=== PATIENT | male | born 1990 ===

== ENCOUNTER 2025-01-25 21:57 | Emergency (ER) | payer MEDICAID, SELFPAY ==
[2025-01-25 22:15] VITALS: BP 151/101; PULSE 92; RESP 18; TEMP 36.1; O2SAT 98
[2025-01-25 22:35] VITALS: BP 140/99
[2025-01-25 22:36] VITALS: PULSE 78; O2SAT 97
[2025-01-25 22:45] VITALS: PULSE 67; O2SAT 96
[2025-01-25 23:00] VITALS: PULSE 81; O2SAT 94
[2025-01-25 23:02] VITALS: BP 153/94; PULSE 69; O2SAT 96
[2025-01-25 23:54] LABS: Amphetamine Screen Urine POSITIVE (Negative); Benzodiazepines Screen Urine POSITIVE (Negative); Cannabinoid Screen Urine Negative (Negative); Cocaine Screen Urine Negative (Negative); Methamphetamines Screen Urine Negative (Negative); Opiate Screen Urine Negative (Negative); Phencyclidine Screen Urine Negative (Negative); Tricyclic Antidepressant Urine Negative (Negative)
[2025-01-25 23:55] LABS: Barbiturate Screen Urine Negative (Negative); Methadone Screen Urine Negative (Negative); Oxycodone Screen Urine Negative (Negative)
--- NOTE | 2025-01-25 23:59 | ED.NURSE ---
pt given sandwich and juice.
[2025-01-26 00:02] LABS: Basophils Absolute Auto 0.03 K/uL (0.00-0.30); Basophils Percent Auto 0.4 % (0.0-3.0); Eosinophils Percent Auto 1.2 % (0.0-7.0); Hematocrit 41.4 % (37.0-53.0); Hemoglobin* 14.6 gm/dL (13.5-17.5); Immature Granulocytes Abs Auto 0.04 K/uL (0.00-0.30); Immature Granulocytes Pct Auto 0.5 %; Lymphocytes Percent Auto 19.2 % (20-44); Mean Corpuscular HGB Conc 35 gm/dL (32-36); Mean Corpuscular Hemoglobin 33 pg (26-34); Mean Corpuscular Volume 94 fL (80-100); Monocytes Percent Auto 7.6 % (0.0-11.0); Neutrophils Absolute Auto 5.92 K/uL (1.7-7.0); Neutrophils Percent Auto 71.1 % (42.0-72.0); Platelet Count* 154 K/uL (140-440); RDW Coefficient of Variation % 13.1 % (11.5-15.5); Slide Review Reflex No; White Blood Count* 8.32 K/uL (4.50-11.00)
--- NOTE | 2025-01-26 00:04 | ED.ALCOHOL ---
HPI - Alcohol General Date Seen: 01/26/25 <Rory Zamora MD - Last Filed: 01/26/25 12:43> Chief Complaint: Alcohol/Intoxication <Rory Zamora MD - Last Filed: 01/26/25 12:43> Stated Complaint: etoh withdrawl <Rory Zamora MD - Last Filed: 01/26/25 12:43> Time Seen by Provider: 01/25/25 22:27 <Rory Zamora MD - Last Filed: 01/26/25 12:43> Source: patient <Rory Zamora MD - Last Filed: 01/26/25 12:43> Mode of arrival: ambulatory <Rory Zamora MD - Last Filed: 01/26/25 12:43> Limitations: no limitations <Rory Zamora MD - Last Filed: 01/26/25 12:43> History of Present Illness HPI narrative: Patient is a 34-year-old chronic alcoholic who is here in a pen[facility]iary house in [place], he got kicked out because he failed the urine screen for alcohol, he has been drinking for the past couple days, comes to the er he says he feels terrible, but can give me no more specific than just feeling terrible. Denies fevers chills or sweats he denies any chest pain associated this he is not nauseous and not vomiting, but says he is in withdrawal. <Rory Zamora MD - Last Filed: 01/26/25 12:43> MD complaint: alcohol withdrawal <Rory Zamora MD - Last Filed: 01/26/25 12:43> Last drink: hours (ago) <Rory Zamora MD - Last Filed: 01/26/25 12:43> Chronic alcohol use: Yes <Rory Zamora MD - Last Filed: 01/26/25 12:43> Previous visits for alcohol intoxication: Yes <Rory Zamora MD - Last Filed: 01/26/25 12:43> Associated symptoms: denies other symptoms <Rory Zamora MD - Last Filed: 01/26/25 12:43> Severity: moderate <Rory Zamora MD - Last Filed: 01/26/25 12:43> Treatments prior to arrival: none <Rory Zamora MD - Last Filed: 01/26/25 12:43> Exam Narrative: Exam Narrative: On examination in room 1, he has a little bit irritated when I talked to him, but once he realizes that I would will do anything for him unless he talks, any is cooperative. His pupils are equal round reactive to light there is no scleral icterus redness is TMs are normal oropharynx normal, rosacea is noted on his face, TMs are normal there is no evidence of any trauma his head or neck region, is neck is supple, chest is good air entry bilaterally no wheezing crackles noted heart sounds are normal his abdomen is soft there is no guarding no organomegaly he moves all extremities independently and well. Eyes vital signs he clearly is not in withdrawal. <Rory Zamora MD - Last Filed: 01/26/25 12:43> Const: Vital Signs, click to edit/add: Vital Signs - 24 hr 01/25/25 22:15 01/25/25 22:35 01/25/25 22:36 Temperature 97.0 F L Pulse Rate 78 Pulse Rate [Pulse Oximeter] 92 Respiratory Rate 18 Blood Pressure 140/99 H Blood Pressure [Ri ght Upper Arm] 151/101 H Pulse Oximetry 98 97 Oxygen Delivery Me thod Room Air 01/25/25 22:45 01/25/25 23:00 01/25/25 23:02 Temperature Pulse Rate 67 81 69 Pulse Rate [Pulse Oximeter] Respiratory Rate Blood Pressure 153/94 H Blood Pressure [Ri ght Upper Arm] Pulse Oximetry 96 94 96 Oxygen Delivery Me thod <Rory Zamora MD - Last Filed: 01/26/25 12:43> Vital Signs, click to edit/add: Vital Signs - 24 hr 01/25/25 22:15 01/25/25 22:35 01/25/25 22:36 Temperature 97.0 F L Pulse Rate 78 Pulse Rate [Pulse Oximeter] 92 Respiratory Rate 18 Blood Pressure 140/99 H Blood Pressure [Ri ght Upper Arm] 151/101 H Pulse Oximetry 98 97 Oxygen Delivery Me thod Room Air 01/25/25 22:45 01/25/25 23:00 01/25/25 23:02 Temperature Pulse Rate 67 81 69 Pulse Rate [Pulse Oximeter] Respiratory Rate Blood Pressure 153/94 H Blood Pressure [Ri ght Upper Arm] Pulse Oximetry 96 94 96 Oxygen Delivery Me thod <Douglas Armstrong MD - Last Filed: 01/26/25 00:31> Vital Signs, click to edit/add: Vital Signs - 24 hr 01/25/25 22:15 01/25/25 22:35 01/25/25 22:36 Temperature 97.0 F L Pulse Rate 78 Pulse Rate [Pulse Oximeter] 92 Respiratory Rate 18 Blood Pressure 140/99 H Blood Pressure [Ri ght Upper Arm] 151/101 H Pulse Oximetry 98 97 Oxygen Delivery Me thod Room Air 01/25/25 22:45 01/25/25 23:00 01/25/25 23:02 Temperature Pulse Rate 67 81 69 Pulse Rate [Pulse Oximeter] Respiratory Rate Blood Pressure 153/94 H Blood Pressure [Ri ght Upper Arm] Pulse Oximetry 96 94 96 Oxygen Delivery Me thod <Bernabe Mclain MD - Last Filed: 01/26/25 09:55> Documenting provider has reviewed patient's vital signs: yes <Rory Zamora MD - Last Filed: 01/26/25 12:43> Course Course ED Course: I did review some notes from the [facility] where the doctor there in November of 2024 described him as being in the ER 30 times in the last 2 years for alcohol withdrawal in issues secondary to this. Patient will be signed over to my partner Dr. Anne for for further care room review of the laboratory work and disposition. <Rory Zamora MD - Last Filed: 01/26/25 12:43> Reevaluation(s) Time of Reevaluation #1: 00:29 <Douglas Armstrong MD - Last Filed: 01/26/25 00:31> Reevaluation #1: Patient accepted in sign-out from prior provider, briefly 34-year-old male with history of polysubstance abuse including alcohol and methamphetamine who [facility] today [facility] due to positive drug screen. Patient says he is in withdrawal, however no tachycardia, no tremulousness, no clinical evidence for withdrawal. Labs independently interpreted by me with normal CBC, normal basic metabolic panel, slightly elevated AST and ALT, negative alcohol level, urine drug screen positive for amphetamine and benzodiazepines. No medical indication for admission at this time, however patient is homeless and has been kicked out of his current residence due to violation policy. Will watch in the emergency department tonight and plan for discharge in the morning. <Douglas Armstrong MD - Last Filed: 01/26/25 00:31> Reevaluation #2: Patient signed out to Dr. Mclain at 8:00 a.m. on 01/[address] Armstrong. 34-year-old male who had apparently been sent to the ER yesterday evening from his treatment center because he had alcohol in his urine. Unclear if he had an alcohol positive screen or if it was something else such as methamphetamine positive in his urine test. Apparently he had been kicked out of his treatment center and was homeless. He was medically clear overnight. He was allowed to sleep here in the ER over with the plan to reassess today with social Work. He was reassessed by social WorkBreanne at about 9:00 a.m.. He was offered [facility]. He is not suicidal but does say he is feeling depressed. He told Breanne that he was already aware of the [facility]. He subsequently left the ER before I could meet him or give him discharge paperwork. <Bernabe Mclain MD - Last Filed: 01/26/25 09:55> Vital Signs Vital signs: Initial Vital Signs Temperature 97.0 F L 01/25/25 22:15 Temperature Source Temporal Artery Scan 01/25/25 22:15 Pulse Rate 92 01/25/25 22:15 Pulse Rhythm Regular 01/25/25 22:15 Respiratory Rate 18 01/25/25 22:15 Blood Pressure 151/101 H 01/25/25 22:15 Blood Pressure Mean 117 H 01/25/25 22:15 Blood Pressure Position Sitting 01/25/25 22:15 Pulse Oximetry 98 01/25/25 22:15 Oxygen Delivery Method Room Air 01/25/25 22:15 Vital Signs Temperature 97.0 F L 01/25/25 22:15 Pulse Rate 92 01/25/25 22:15 Respiratory Rate 18 01/25/25 22:15 Blood Pressure 151/101 H 01/25/25 22:15 Pulse Oximetry 98 01/25/25 22:15 Oxygen Delivery Method Room Air 01/25/25 22:15 Temperature 97.0 F L 01/25/25 22:15 Pulse Rate 69 01/25/25 23:02 Respiratory Rate 18 01/25/25 22:15 Blood Pressure 153/94 H 01/25/25 23:02 Pulse Oximetry 96 01/25/25 23:02 Oxygen Delivery Method Room Air 01/25/25 22:15 <Rory Zamora MD - Last Filed: 01/26/25 12:43> Initial Vital Signs Temperature 97.0 F L 01/25/25 22:15 Temperature Source Temporal Artery Scan 01/25/25 22:15 Pulse Rate 92 01/25/25 22:15 Pulse Rhythm Regular 01/25/25 22:15 Respiratory Rate 18 01/25/25 22:15 Blood Pressure 151/101 H 01/25/25 22:15 Blood Pressure Mean 117 H 01/25/25 22:15 Blood Pressure Position Sitting 01/25/25 22:15 Pulse Oximetry 98 01/25/25 22:15 Oxygen Delivery Method Room Air 01/25/25 22:15 Vital Signs Temperature 97.0 F L 01/25/25 22:15 Pulse Rate 92 01/25/25 22:15 Respiratory Rate 18 01/25/25 22:15 Blood Pressure 151/101 H 01/25/25 22:15 Pulse Oximetry 98 01/25/25 22:15 Oxygen Delivery Method Room Air 01/25/25 22:15 Temperature 97.0 F L 01/25/25 22:15 Pulse Rate 69 01/25/25 23:02 Respiratory Rate 18 01/25/25 22:15 Blood Pressure 153/94 H 01/25/25 23:02 Pulse Oximetry 96 01/25/25 23:02 Oxygen Delivery Method Room Air 01/25/25 22:15 <Douglas Armstrong MD - Last Filed: 01/26/25 00:31> Initial Vital Signs Temperature 97.0 F L 01/25/25 22:15 Temperature Source Temporal Artery Scan 01/25/25 22:15 Pulse Rate 92 01/25/25 22:15 Pulse Rhythm Regular 01/25/25 22:15 Respiratory Rate 18 01/25/25 22:15 Blood Pressure 151/101 H 01/25/25 22:15 Blood Pressure Mean 117 H 01/25/25 22:15 Blood Pressure Position Sitting 01/25/25 22:15 Pulse Oximetry 98 01/25/25 22:15 Oxygen Delivery Method Room Air 01/25/25 22:15 Vital Signs Temperature 97.0 F L 01/25/25 22:15 Pulse Rate 92 01/25/25 22:15 Respiratory Rate 18 01/25/25 22:15 Blood Pressure 151/101 H 01/25/25 22:15 Pulse Oximetry 98 01/25/25 22:15 Oxygen Delivery Method Room Air 01/25/25 22:15 Temperature 97.0 F L 01/25/25 22:15 Pulse Rate 69 01/25/25 23:02 Respiratory Rate 18 01/25/25 22:15 Blood Pressure 153/94 H 01/25/25 23:02 Pulse Oximetry 96 01/25/25 23:02 Oxygen Delivery Method Room Air 01/25/25 22:15 <Bernabe Mclain MD - Last Filed: 01/26/25 09:55> Medications Administered Medications: Discontinued Medications Generic Name Dose Route Start Last Admin Trade Name Freq PRN Reason Stop Dose Admin Sodium Chloride 1,000 mls @ 1,000 mls/hr 01/25/25 23:30 01/26/25 02:30 0.9 % Sodium Chloride 1000 Ml IV 01/26/25 00:29 Infused .Q1H SERA Infusion Lorazepam 1 mg 01/25/25 23:23 01/26/25 00:16 Lorazepam 2 Mg/Ml Inj IVP 01/25/25 23:24 1 mg ONCE ONE Administration <Rory Zamora MD - Last Filed: 01/26/25 12:43> Discontinued Medications Generic Name Dose Route Start Last Admin Trade Name Freq PRN Reason Stop Dose Admin Sodium Chloride 1,000 mls @ 1,000 mls/hr 01/25/25 23:30 01/26/25 02:30 0.9 % Sodium Chloride 1000 Ml IV 01/26/25 00:29 Infused .Q1H SERA Infusion Lorazepam 1 mg 01/25/25 23:23 01/26/25 00:16 Lorazepam 2 Mg/Ml Inj IVP 01/25/25 23:24 1 mg ONCE ONE Administration <Douglas Armstrong MD - Last Filed: 01/26/25 00:31> Discontinued Medications Generic Name Dose Route Start Last Admin Trade Name Freq PRN Reason Stop Dose Admin Sodium Chloride 1,000 mls @ 1,000 mls/hr 01/25/25 23:30 01/26/25 02:30 0.9 % Sodium Chloride 1000 Ml IV 01/26/25 00:29 Infused .Q1H SERA Infusion Lorazepam 1 mg 01/25/25 23:23 01/26/25 00:16 Lorazepam 2 Mg/Ml Inj IVP 01/25/25 23:24 1 mg ONCE ONE Administration <Bernabe Mclain MD - Last Filed: 01/26/25 09:55> MDM - Alcohol Medical Records Attestation: I reviewed the patient's medical records. <Rory Zamora MD - Last Filed: 01/26/25 12:43> Lab Data Attestation: I reviewed the patient's lab results. <Rory Zamora MD - Last Filed: 01/26/25 12:43> Labs: Lab Results 01/25/25 01/25/25 Range/Units 23:35 23:50 WBC 8.32 (4.50-11.00) K/uL RBC 4.40 (4.30-5.90) m/uL Hgb 14.6 (13.5-17.5) gm/dL Hct 41.4 (37.0-53.0) % MCV 94 (80-100) fL MCH 33 (26-34) pg MCHC 35 (32-36) gm/dL RDW Coeff of Vicente 13.1 (11.5-15.5) % Plt Count 154 (140-440) K/uL Neut % (Auto) 71.1 (42.0-72.0) % Lymph % (Auto) 19.2 L (20-44) % [place] % (Auto) 7.6 (0.0-11.0) % Eos % (Auto) 1.2 (0.0-7.0) % Baso % (Auto) 0.4 (0.0-3.0) % Neut # (Auto) 5.92 (1.7-7.0) K/uL Lymph # (Auto) 1.60 (0.90-2.90) K/uL [place] # (Auto) 0.60 (0.00-0.90) K/UL Eos # (Auto) 0.10 (0.00-0.50) K/uL Baso # (Auto) 0.03 (0.00-0.30) K/uL Abs Immat Gran (auto) 0.04 (0.00-0.30) K/uL Imm/Tot Granulo (auto) 0.5 % INR 0.97 (0.91-1.10) APTT 25 (23-33) Seconds Sodium 135 (135-149) mmol/L Potassium 4.1 (3.6-5.1) mmol/L Chloride 101 (96-114) mmol/L Carbon Dioxide 26 (20-32) mmol/L Anion Gap 8 (7-15) mEq/L BUN 9 (5-24) mg/dL Creatinine 0.8 (0.5-1.5) mg/dL Estimated GFR 119 ml/min Glucose 110 (60-115) mg/dL Calcium 10.0 (8.4-10.6) mg/dL Phosphorus 3.8 (2.5-4.5) mg/dL Magnesium 1.7 (1.5-2.6) mg/dL Total Bilirubin 0.9 (0.1-1.5) mg/dL Direct Bilirubin 0.2 (0.0-0.5) mg/dL AST 52 H (12-35) U/L ALT 69 H (4-50) U/L Alkaline Phosphatase 98 (40-150) U/L Total Protein 7.3 (6.0-8.3) g/dL Albumin 4.6 (3.3-5.0) g/dL Salicylates < 1.0 L (1.0-10) mg/dL Urine Opiates Screen Negative (Negative) Ur Oxycodone Screen Negative (Negative) Urine Methadone Screen Negative (Negative) Acetaminophen < 10.0 (10.0-30.0) ug/mL Ur Barbiturates Screen Negative (Negative) U Tricyclic Antidepress Negative (Negative) Ur Phencyclidine Scrn Negative (Negative) Ur Amphetamines Screen POSITIVE A (Negative) U Methamphetamines Scrn Negative (Negative) U Benzodiazepines Scrn POSITIVE A (Negative) Urine Cocaine Screen Negative (Negative) U Marijuana (THC) Screen Negative (Negative) Ur Drug Screen Comment See Note Ethyl Alcohol < 0.01 (0.01-0.03) % <Rory Zamora MD - Last Filed: 01/26/25 12:43> Lab Results 01/25/25 01/25/25 Range/Units 23:35 23:50 WBC 8.32 (4.50-11.00) K/uL RBC 4.40 (4.30-5.90) m/uL Hgb 14.6 (13.5-17.5) gm/dL Hct 41.4 (37.0-53.0) % MCV 94 (80-100) fL MCH 33 (26-34) pg MCHC 35 (32-36) gm/dL RDW Coeff of Vicente 13.1 (11.5-15.5) % Plt Count 154 (140-440) K/uL Neut % (Auto) 71.1 (42.0-72.0) % Lymph % (Auto) 19.2 L (20-44) % [place] % (Auto) 7.6 (0.0-11.0) % Eos % (Auto) 1.2 (0.0-7.0) % Baso % (Auto) 0.4 (0.0-3.0) % Neut # (Auto) 5.92 (1.7-7.0) K/uL Lymph # (Auto) 1.60 (0.90-2.90) K/uL [place] # (Auto) 0.60 (0.00-0.90) K/UL Eos # (Auto) 0.10 (0.00-0.50) K/uL Baso # (Auto) 0.03 (0.00-0.30) K/uL Abs Immat Gran (auto) 0.04 (0.00-0.30) K/uL Imm/Tot Granulo (auto) 0.5 % INR 0.97 (0.91-1.10) APTT 25 (23-33) Seconds Sodium 135 (135-149) mmol/L Potassium 4.1 (3.6-5.1) mmol/L Chloride 101 (96-114) mmol/L Carbon Dioxide 26 (20-32) mmol/L Anion Gap 8 (7-15) mEq/L BUN 9 (5-24) mg/dL Creatinine 0.8 (0.5-1.5) mg/dL Estimated GFR 119 ml/min Glucose 110 (60-115) mg/dL Calcium 10.0 (8.4-10.6) mg/dL Phosphorus 3.8 (2.5-4.5) mg/dL Magnesium 1.7 (1.5-2.6) mg/dL Total Bilirubin 0.9 (0.1-1.5) mg/dL Direct Bilirubin 0.2 (0.0-0.5) mg/dL AST 52 H (12-35) U/L ALT 69 H (4-50) U/L Alkaline Phosphatase 98 (40-150) U/L Total Protein 7.3 (6.0-8.3) g/dL Albumin 4.6 (3.3-5.0) g/dL Salicylates < 1.0 L (1.0-10) mg/dL Urine Opiates Screen Negative (Negative) Ur Oxycodone Screen Negative (Negative) Urine Methadone Screen Negative (Negative) Acetaminophen < 10.0 (10.0-30.0) ug/mL Ur Barbiturates Screen Negative (Negative) U Tricyclic Antidepress Negative (Negative) Ur Phencyclidine Scrn Negative (Negative) Ur Amphetamines Screen POSITIVE A (Negative) U Methamphetamines Scrn Negative (Negative) U Benzodiazepines Scrn POSITIVE A (Negative) Urine Cocaine Screen Negative (Negative) U Marijuana (THC) Screen Negative (Negative) Ur Drug Screen Comment See Note Ethyl Alcohol < 0.01 (0.01-0.03) % <Douglas Armstrong MD - Last Filed: 01/26/25 00:31> Lab Results 01/25/25 01/25/25 Range/Units 23:35 23:50 WBC 8.32 (4.50-11.00) K/uL RBC 4.40 (4.30-5.90) m/uL Hgb 14.6 (13.5-17.5) gm/dL Hct 41.4 (37.0-53.0) % MCV 94 (80-100) fL MCH 33 (26-34) pg MCHC 35 (32-36) gm/dL RDW Coeff of Vicente 13.1 (11.5-15.5) % Plt Count 154 (140-440) K/uL Neut % (Auto) 71.1 (42.0-72.0) % Lymph % (Auto) 19.2 L (20-44) % [place] % (Auto) 7.6 (0.0-11.0) % Eos % (Auto) 1.2 (0.0-7.0) % Baso % (Auto) 0.4 (0.0-3.0) % Neut # (Auto) 5.92 (1.7-7.0) K/uL Lymph # (Auto) 1.60 (0.90-2.90) K/uL [place] # (Auto) 0.60 (0.00-0.90) K/UL Eos # (Auto) 0.10 (0.00-0.50) K/uL Baso # (Auto) 0.03 (0.00-0.30) K/uL Abs Immat Gran (auto) 0.04 (0.00-0.30) K/uL Imm/Tot Granulo (auto) 0.5 % INR 0.97 (0.91-1.10) APTT 25 (23-33) Seconds Sodium 135 (135-149) mmol/L Potassium 4.1 (3.6-5.1) mmol/L Chloride 101 (96-114) mmol/L Carbon Dioxide 26 (20-32) mmol/L Anion Gap 8 (7-15) mEq/L BUN 9 (5-24) mg/dL Creatinine 0.8 (0.5-1.5) mg/dL Estimated GFR 119 ml/min Glucose 110 (60-115) mg/dL Calcium 10.0 (8.4-10.6) mg/dL Phosphorus 3.8 (2.5-4.5) mg/dL Magnesium 1.7 (1.5-2.6) mg/dL Total Bilirubin 0.9 (0.1-1.5) mg/dL Direct Bilirubin 0.2 (0.0-0.5) mg/dL AST 52 H (12-35) U/L ALT 69 H (4-50) U/L Alkaline Phosphatase 98 (40-150) U/L Total Protein 7.3 (6.0-8.3) g/dL Albumin 4.6 (3.3-5.0) g/dL Salicylates < 1.0 L (1.0-10) mg/dL Urine Opiates Screen Negative (Negative) Ur Oxycodone Screen Negative (Negative) Urine Methadone Screen Negative (Negative) Acetaminophen < 10.0 (10.0-30.0) ug/mL Ur Barbiturates Screen Negative (Negative) U Tricyclic Antidepress Negative (Negative) Ur Phencyclidine Scrn Negative (Negative) Ur Amphetamines Screen POSITIVE A (Negative) U Methamphetamines Scrn Negative (Negative) U Benzodiazepines Scrn POSITIVE A (Negative) Urine Cocaine Screen Negative (Negative) U Marijuana (THC) Screen Negative (Negative) Ur Drug Screen Comment See Note Ethyl Alcohol < 0.01 (0.01-0.03) % <Bernabe Mclain MD - Last Filed: 01/26/25 09:55> ECG Data Attestation: I personally reviewed and interpreted this ECG as follows: <Rory Zamora MD - Last Filed: 01/26/25 12:43> ECG interpretation date: 01/26/25 <Rory Zamora MD - Last Filed: 01/26/25 12:43> Interpretation: EKG shows normal sinus rhythm with sinus arrhythmia, ventricular rates 84 Assessment normal EKG <Rory Zamora MD - Last Filed: 01/26/25 12:43> Discharge Plan Discharge Clinical Impression: Alcohol dependence <Rory Zamora MD - Last Filed: 01/26/25 12:43> Patient Disposition: Home, Self-Care <Rory Zamora MD - Last Filed: 01/26/25 12:43> Instructions: Abuse of Alcohol (DC), Alcohol Withdrawal (DC), Alcohol Dependence (ED) <Rory Zamora MD - Last Filed: 01/26/25 12:43> Stand Alone Forms: MyHealth Info Instructions <Rory Zamora MD - Last Filed: 01/26/25 12:43>
[2025-01-26 00:16] LABS: Albumin* 4.6 g/dL (3.3-5.0); Chloride* 101 mmol/L (96-114); Sodium* 135 mmol/L (135-149)
[2025-01-26] MEDS: LORazepam 2 MG/ML inj 1 MG IVP (00:16)
[2025-01-26] MEDS: 0.9 % SODIUM CHLORIDE 1000 ml 1,000 ML IV (00:16)
[2025-01-26 00:17] LABS: Potassium* 4.1 mmol/L (3.6-5.1)
[2025-01-26 00:19] LABS: Alanine Aminotransferase* 69 U/L (4-50); Alkaline Phosphatase* 98 U/L (40-150); Anion Gap 8 mEq/L (7-15); Aspartate Amino Transferase* 52 U/L (12-35); Bilirubin Direct* 0.2 mg/dL (0.0-0.5); Bilirubin Total* 0.9 mg/dL (0.1-1.5); Blood Urea Nitrogen* 9 mg/dL (5-24); Carbon Dioxide* 26 mmol/L (20-32); Creatinine* 0.8 mg/dL (0.5-1.5); Estimated Glomerular Filt Rate 119 ml/min; Glucose* 110 mg/dL (60-115); Magnesium* 1.7 mg/dL (1.5-2.6); Phosphorus* 3.8 mg/dL (2.5-4.5); Total Protein* 7.3 g/dL (6.0-8.3)
[2025-01-26 00:21] LABS: Acetaminophen* < 10.0 ug/mL (10.0-30.0); Ethanol* < 0.01 % (0.01-0.03); Salicylate* < 1.0 mg/dL (1.0-10)
[2025-01-26 00:23] LABS: INR 0.97 (0.91-1.10); Partial Thromboplastin Time* 25 Seconds (23-33); Prothrombin Time 13.7 Seconds
--- NOTE | 2025-01-26 07:56 | PC.NURSE ---
Patient needed to void. Emptied 325cc from urinal. Ordered patient breakfast and notified patient that he is being discharged per MD order. Patient stated I have no where to go. I can't be discharged. Told patient about the [facility] and offered to get him a taxi to there. Patient stated How are they going to help me? Informed patient how they can help him. Patient responded I just need to stay here for 2 days until my urine is clear and then i can go back to my [facility]. Educated patient that this is not an option and offered him resources. Requested patient to provide phone number to the leasing director of the [facility]. Patient is unwilling to provide this. Patient started to escalate with his tone of voice. MD was notified and went to talk to patient.
--- NOTE | 2025-01-26 09:35 | PC.NURSE ---
Patient left via ambulatory from the ER. Patient was medically discharged. conference services director met with patient and patient decided he was going to leave. PIV taken out and left via ambulatory. On patients way out, patient asked Why can't I just stay here another night? Provided patient with places he can go for usp.
--- NOTE | 2025-01-26 09:37 | PC.SOCIAL ---
Discharge planning: Met with pt regarding d/c plan. Pt states he has been at the [facility] here in [place] since October. He shared that he was kicked out yesterday because of alcohol use and can go back to the program if he tests negative for alcohol in two days. Pt states he wants to stay at the hospital until he can return to the [facility]. Explained that pt does not need the medical care of the hospital and will be discharged today. Offered to call his [facility] to problem solve his housing needs. Pt states he has already called the facility and they suggested he go to the [facility]. Shared written information on the [facility] and their program for emergency [facility]. Pt states he does not believe they will help him but that he will go there. Pt states he has his own car and can drive there on his own. Pt was also offered to go from the hospital to detox if he prefers that to going to the [facility]. Pt states he refuses detox because they would keep him 3 days and he [facility] more [facility]. Informed RN of pt's plan for discharge and to drive himself to the [facility].
--- OUTSIDE RECORDS SUMMARY | 2025-01-26 09:54 | XMS_ITS | Clinical Summary ---
Author Organization [facility] Address [address] [place] [address] Care Team Providers Care Ampoule Filler Name Role Phone Primitivo Apple MD Primary Care Provider Allergies Active Allergy Reactions Criticality Noted Date Comments Fluoxetine Rash Medium 11/13/2019 Burning rash Paroxetine Hcl *Unknown 04/16/2001 Childhood reaction-unknown Medications * This document contains information received from the source organization and may not represent a complete record from that organization. gabapentin (NEURONTIN) 600 mg tablet Take 600 mg by mouth four times daily. Active multivitamin,ther and minerals (multivitamin with minerals) tabletIndications: Alcohol withdrawal syndrome with perceptual disturbance (HC) Take 1 Tablet by mouth once daily. 30 Tablet 4 Active dextroamphetamine- amphetamine (ADDERALL) 20 mg tablet Take 20 mg by mouth once daily. Active cloNIDine HCL (CATAPRES) 0.1 mg tablet Take 0.1 mg by mouth two times daily. Active folic acid 1 mg tabletIndications: Alcohol withdrawal syndrome with complication (HC) Take 1 Tablet (1 mg) by mouth once daily. 30 Tablet 4 Active thiamine (VITAMIN B1) 100 mg tabletIndications: Alcohol withdrawal syndrome with complication (HC) Take 1 Tablet (100 mg) by mouth once daily. 30 Tablet 4 Active lisdexamfetamine (VYVANSE) 60 mg capsule Take 60 mg by mouth once daily in the morning. Active clonazePAM (KLONOPIN) 1 mg tabletIndications: Alcohol withdrawal syndrome, with delirium (HC),Anxiety state,Panic disorder with agoraphobia Take 1 Tablet (1 mg) by mouth three times daily. 15 Tablet 4 Active levalbuterol (Xopenex HFA) 45 mcg/actuation inhalerIndications :Moderate persistent asthma without complication (HC) Inhale 1-2 Puffs by mouth every 4 hours if needed for Shortness Of Breath or Wheezing. 2 Each 3 4 Active ondansetron (ZOFRAN ODT) 4 mg disintegrating tabletIndications: Nausea and vomiting, unspecified vomiting type Place 1 Tablet (4 mg) on the tongue every 8 hours if needed for Nausea/Vomiti ng. 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 Provider to review Major depressive disorder, single episode, mild 06/05/2012 Overview (01/06/2021): Major Depressive Disorder, Single Episode, Mild Degree Mild major depression Attention deficit hyperactivity disorder (ADHD) 08/27/2002 Overview (01/06/2021): Problem list name updated by automated process. Provider to review Attention Deficit Disorder of Childhood with Hyperactivity Attention deficit disorder with hyperactivity Oppositional defiant disorder 06/02/2002 Overview (01/06/2021): Problem list name updated by automated process. Provider to review Generalized anxiety disorder Depression Alcohol abuse Resolved Problems Problem Noted Date Diagnosed Date Resolved Date Alcohol withdrawal 11/21/2023 4 Alcohol-induced acute pancreatitis 08/31/2023 03/08/2024 Ankle fracture, right, close d, initial encounter 09/01/2019 03/08/2024 Closed fracture of fibula 08/10/2019 Type 2 diabetes mellitus 02/08/2019 Alcohol-induced acute pancreatitis 02/07/2019 03/23/2019 DKA (diabetic ketoacidoses) 02/07/2019 02/08/2019 Acute alcohol intoxication i n patient with alcoholism with blood alcohol level over 0.3 03/05/2014 03/15/2014 Benzodiazepine overdose 03/05/201402/20 Combative behavoir 03/05/2014 4 Immunizations Immunization Administration Dates Next Due DTP 02/28/1993,1990,1990 ,1990 DTaP 06/06/1995 HIB HbOC (HibTITER) 05/21/1991,02/12/1991 Hepatitis B (Peds) 01/16/2002,09/05/2001, 001 Hepatitis B, Unspecified 01/16/2002,09/05/2001,0 07/11/2001 Influenza Virus, Unspecified 08/07/2019 Influenza, IIV4 08/01/2020,08/07/2019 MMR 06/06/1995,05/21/1991 Oral Polio Vaccine 06/06/1995,02/28/1993, 990,1990 Tdap 05/12/2016 Family History Medical History Relation Name Comments Drug Abuse Brother 1 Dio graduated from treatment. Now in nursing home for meth. Good Health Brother 2 Tomer Alcoholism Father Ranjeet Diabetes Father Ranjeet Good Health Mother Carolyn Relation Name Status Comments Brother 1 Dio Alive Brother 2 Tomer Alive Father Ranjeet Alive Mother Carolyn Alive Social History Tobacco Use Types Packs/Day Years Used Date Smoking Tobacco: Never Smokeless Tobacco: Never Tobacco Cessation:Counseling Given: Not Answered Alcohol Use Standard Drinks/Week Comments Not Currently 0 (1 standard drink = 0.6 oz pure alcohol) Severe AUD: recurrent admissions with SOUTH elevated, at times > 0.3 PHQ-2 Answer Date Recorded PHQ-2 TOTAL SCORE 3 08/14/2024 Social Connections Answer Date Recorded Do you often feel lonely or isolated from those around you? 0 07/11/2024 Financial Resource Strain Answer Date R ecorded Difficulty of Paying Living Expenses 1 06/22/2024 Difficulty of Paying Living Expenses 2 06/22/2024 Food Insecurity Answer Date Recorded Do you worry your food will run out before you are able to buy more? 1 07/11/2024 Transportation Needs Answer Date Record ed Does lack of transportation keep you from medica l appointments? 1 07/11/2024 Does lack of transportation keep you from work, meetings or getting things that you need? 1 07/11/2024 Housing Stability Answer Date Recorded What is your housing situation today? 2 07/11/2024 Interpersonal Safety Answer Date Record ed Are you being hit, kicked, p ushed or yelled at (see row info)? No 07/11/2024 Interpersonal Safety Abuse 12 - 18 Not on file 07/11/2024 Interpersonal Safety Ambulatory Vulnerability No t on file 07/11/2024 Utilities Answer Date Recorded Do you have trouble paying f or utilities (for example, heat, electricity, water, phone)? 2 07/11/2024 Sex and Gender Information Value Date Recorded Sex Assigned at Not on file Legal Sex Male 7:15 AM [employer] Gender Identity Not on file Sexual Orientation Not on file Obstetrics History Last Filed Vital Signs Vital Sign Reading Time Taken Comments Blood Pressure 132/88 08/14/2024 3:19 PM CDT Pulse 128 08/14/2024 3:19 PM CDT Temperature 36.4 C (97.5 F) 07/10/2024 9:00 PM CDT Respiratory Rate 22 07/11/2024 9:36 AM CDT Oxygen Saturation 96% 07/11/2024 9:36 AM CDT Inhaled Oxygen Concentration - - Weight 118.6 kg (261 lb 6.4 oz) 08/14/2024 3:19 PM CDT Height 177.8 cm (5' 10) 07/10/2024 8:56 PM CDT Body Mass Index 37.51 07/10/2024 8:56 PM CDT Plan of Treatment Health Maintenance Due Date Last Done Comments HIV for age 15-65 2005 Hepatitis C screening for ag e 18-79 02/04/2008 Pneumococcal series for age 6-49 (1 of 2 - PCV) 2009 BMI (ht and wt on same day) for age 18+ 03/15/2024 03/15/2023, 12/26/2021, 01/06/2021, Additional history exists COVID-19 vaccine series ( season) 2024 02/13/2021 Influenza Vaccine (Season Ended) 2025 08/01/2020, 08/07/2019, 08/07/2019 Depression screening for age 12+ 08/18/2025 08/18/2024, 08/15/2024, 08/14/2024, Additional history exists Tetanus booster 05/12/2026 05/12/2016 Tdap Completed 05/12/2016 Insurance [place] [id number] HR HOLD [facility] ONLY [facility] [place] [place] [id number] MEDICAID * Guarantor: [facility] Account Type Relation to Patient Date of Phone Billing Address [employer] Employer [address] [place] [address] Advance Directives * Full Code (Latest Code Status on File) Date Activated Date Inactivated Comments 07/11/2024 9:41 AM 07/11/2024 12:51 PM Question Answer Comments Code Status Discussion: Unable to Assess Preferences, Provider to review later * Full Code Date Activated Date Inactivated Comments 06/22/2024 10:45 PM 06/23/2024 3:06 PM Question Answer Comments Code Status Discussion: Reviewed Preferences * Full Code Date Activated Date Inactivated Comments 05/20/2024 8:31 PM 05/22/2024 4:26 PM Question Answer Comments Code Status Discussion: Reviewed Preferences * Full Code Date Activated Date Inactivated Comments 01/23/2024 5:24 PM 01/29/2024 11:42 AM Question Answer Comments Code Status Discussion: Reviewed Preferences * Full Code Date Activated Date Inactivated Comments 11/21/2023 11:37 PM 11/23/2023 11:46 AM Question Answer Comments Code Status Discussion: Reviewed Preferences Care Teams Ampoule Filler Relationship Specialty [place] [address] [place] [address] PCP - General Family Practice 01/29/24
--- OUTSIDE RECORDS SUMMARY | 2025-01-26 09:54 | XMS_ITS | Clinical Summary ---
Author Organization [facility] Address [address] [place] [address] Care Team Providers Care Station Detective Name Role Phone Clinic, No Primary Unavailable Unavailable Doctor, No Primary Care Provider Unavailabl e Allergies No known active allergies Medications GABAPENTIN ORAL Take by mouth. Active Social History Tobacco Use Types Packs/Day Years Used Date Smoking Tobacco: Unknown Alcohol Use Standard Drinks/Week Comments Yes 0 (1 standard drink = 0.6 oz pur e alcohol) Sex and Gender Information Value Date Recorded Sex Assigned at Not on file Legal Sex Male 6:00 PM CDT Gender Identity Not on file Sexual Orientation Not on file Last Filed Vital Signs Vital Sign Reading Time Taken Comments Blood Pressure 130/80 05/06/2023 3:00 PM CDT Pulse 119 05/06/2023 3:00 PM CDT Temperature 36.6 C (97.8 F) 05/06/2023 2:30 PM CDT Respiratory Rate 17 05/06/2023 3:00 PM CDT Oxygen Saturation 97% 05/06/2023 3:00 PM CDT Inhaled Oxygen Concentration - - Weight - - Height - - Body Mass Index - - Plan of Treatment Health Maintenance Due Date Last Done Comments Hepatitis C Screening 1990 Anxiety Screening (WM-2) 1991 Depression Assessment (PHQ-2) 1991 Pneumococcal Vaccine (1 of 2 - PCV) 2009 COVID-19 Vaccine ( - 2023- season) 2024 Influenza Vaccine (Season Ended) 2025 08/01/20 20, 08/07/2019 Adult Tetanus Booster 05/12/2026 05/12/2016 RSV Vaccines (1 - 1-dose 75+ series) 2065 Care Teams Station Detective Relationship Specialty Start Date End Date Clinic, No Primary PCP - Primary Care Clinic 02/15/22 Doctor, No No ad PCP - General Radiology 02/15/22
--- OUTSIDE RECORDS SUMMARY | 2025-01-26 09:54 | XMS_ITS | Referral Summary ---
Author Organization [facility] Address [address] [place] [id number] Care Team Providers Care Dry End Operator Name Role Phone Clinic, No Primary Unavailable [...] Mass Index - - Plan of Treatment Not on file Care Teams Dry End Operator Relationship Specialty Start Date End Date Clinic, No Primary PCP - Primary Care Clinic 02/15/22 Doctor, No No ad PCP - General Radiology 02/15/22
--- OUTSIDE RECORDS SUMMARY | 2025-01-26 09:54 | XMS_ITS | Clinical Summary ---
Author Organization [place] Address [facility] [place] [address] Care Team Providers Care Hide Puller Name Role Phone No Ref-Primary, Physician Primary Care Provider Allergies Active Allergy Reactions Criticality Noted Date Comments Fluoxetine Rash Medium 12/18/2019 Burning rash Paroxetine 04/16/2001 Medications cloNIDine (CATAPRES) 0.1 MG tablet Take 0.1 mg by mouth 2 times daily Active omeprazole (PRILOSEC) [address] capsule Take 1 capsule (20 mg) by mouth daily 30 capsule 0 Active gabapentin (NEURONTIN) 600 MG tablet Take 600 mg by mouth 4 times daily. Active levalbuterol (XOPENEX HFA) 45 MCG/ACT inhaler Inhale 2 puffs into the lungs every 4 hours as needed for shortness of breath or wheezing 15 g 4 Active amphetamine-dex troamphetamine (ADDERALL) 20 MG tablet Take 20 mg by mouth daily. At 4 PM. Active clonazePAM (KLONOPIN) 1 MG tablet Take 1 mg by mouth 3 times daily as needed for anxiety. Active lisdexamfetamin e (VYVANSE) 60 MG capsule Take 60 mg by mouth every morning. Active metFORMIN (GLUCOPHAGE) 500 MG tablet Take 1 tablet (500 mg) by mouth 2 times daily (with meals). 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 05/08/2023 Obesity (BMI 30-39.9) 11/24/2019 05/08/2023 Ankle fracture, right, closed, initial encounter 08/10/2019 05/08/2023 Overview (05/08/2023): Added automatically from request for surgery [id number] Acute alcoholic intoxication in alcoholism, continuous drinking behavior 08/06/2019 05/08/2023 Morbid obesity 05/06/2019 05/08/2023 Alcohol withdrawal syndrome 03/23/201904/21 Panic disorder with agoraphobia 10/11/2017 05/08/2023 Primary hypertension 10/11/2017 05/08/2023 Polysubstance abuse 03/05/2014 05/08/2023 CARDIOVASCULAR SCREENING; LDL GOAL LESS THAN 160 06/11/2012 Encounter for screening for cardiovascular disor ders 06/11/2012 05/08/2023 Anxiety state 06/05/2012 Overview (07/23/2015): Problem list name updated by automated process. Provider to review Mild major depression 06/05/2012 Generalized anxiety disorder 06/05/2012 Overview (05/08/2023): Problem list name updated by automated process. Provider to review Problem list name updated by automated process. Provider to review Attention deficit hyperactivity disorder (ADHD) 08/27/2002 Overview (07/22/2015): Problem list name updated by automated process. Provider to review Oppositional defiant disorder 06/02/2002 Overview (07/22/2015): Problem list name updated by automated process. Provider to review Encounters Date Type Department Care Team Description 11/05/2024 2:56 PM TRAVEL GUIDE - 11/05/2024 9:40 PM TRAVEL GUIDE Emergency [facility] Emergency Dept [address] [place] [id number] Da Hensley MD Cho, Amy C, MD Alcoholic intoxication with complication; Homelessness; Hyperglycemia Discharge Disposition: Home or Self Care 11/05/2024 Travel from Last 3 Months Immunizations Name Administration Dates Next Due HepB 01/16/2002,09/05/2001,07/11/2001 Social History Tobacco Use Types Packs/Day Years Used Date Smoking Tobacco: Never Smokeless Tobacco: Never Comments:no second hand smok e Alcohol Use Standard Drinks/Week Comments Yes 10 (1 standard drink = 0.6 oz pure alcohol) 2 x weekly, 8 beers at a time. Adolescent Education Answer Date Record ed Getting School Help Needed Not on file 08/07 Food Insecurity Answer Date Recorded Within the past 12 months, d id you worry that your food would run out before you got money to buy more? Yes 07/13/2024 Within the past 12 months, d id the food you bought just not last and you didn t have money to get more? No 07/13/2024 Housing Stability Answer Date Recorded Do you have housing? (Eder moya is defined as stable permanent housing and does not include staying ouside in a car, in a tent, in an abandoned building, in an overnight long-term, or couch-surfing.) No 07/13/2024 Are you worried about losing your housing? Yes 07/13/2024 Financial Resource Strain Answer Date R ecorded Within the past 12 months, h ave you or your family members you live with been unable to get utilities (heat, electricity) when it was really needed? Yes 07/13/2024 Transportation Needs Answer Date Record ed Within the past 12 months, h as lack of transportation kept you from medical appointments, getting your medicines, non-medical meetings or appointments, work, or from getting things that you need? Yes 07/13/2024 Interpersonal Safety Answer Date Record ed Do you feel physically and e motionally safe where you currently live? Yes 07/13/2024 Within the past 12 months, h ave you been hit, slapped, kicked or otherwise physically hurt by someone? No 07/13/2024 Within the past 12 months, h ave you been humiliated or emotionally abused in other ways by your partner or ex-partner? No 07/13/2024 Sex and Gender Information Value Date Recorded Sex Assigned at Not on file Legal Sex Male 4:14 AM TRAVEL GUIDE Gender Identity Not on file Sexual Orientation Not on file Last Filed Vital Signs Vital Sign Reading Time Taken Comments Blood Pressure 115/79 11/05/2024 3:05 PM TRAVEL GUIDE Pulse 106 11/05/2024 3:05 PM TRAVEL GUIDE Temperature 36.9 C (98.4 F) 11/05/2024 3:05 PM TRAVEL GUIDE Respiratory Rate 20 11/05/2024 6:00 PM TRAVEL GUIDE Oxygen Saturation 93% 11/05/2024 3:05 PM TRAVEL GUIDE Inhaled Oxygen Concentration - - Weight 121.6 kg (268 lb) 08/01/2024 11:47 PM CDT Height 182.9 cm (6') 08/01/2024 11:47 PM CDT Body Mass Index 36.35 08/01/2024 11:47 PM CDT Plan of Treatment Health Maintenance Due Date Last Done Comments ADVANCE CARE PLANNING 1990 ANNUAL REVIEW OF HM ORDERS 1990 DEPRESSION ACTION PLAN 1990 HIV SCREENING 2005 HEPATITIS C SCREENING 02/04/2008 Pneumococcal Vaccine: Pediatrics (0 to 5 Years) and At-Risk Patients (6 to 49 Years) (1 of 2 - PCV) 2009 PHQ-9 12/06/2012 06/05/2012 YEARLY PREVENTIVE VISIT 03/15/2024 03/15/20 23, 11/24/2019, 03/13/2007 COVID-19 Vaccine (2 - season) 2024 02/13/2021 INFLUENZA VACCINE (#1) 2024 , 08/07/2019, 08/07/2019 BMP 11/05/2025 11/05/2024, 12/06/2024, 08/04/2024, Additional history exists DTAP/TDAP/TD IMMUNIZATION (7 - Td or Tdap) 05/12/2026 05/12/2016, 06/06/1995, 02/28/1993, Additional history exists ZOSTER IMMUNIZATION (1 of 2) 02/04/2040 HEPATITIS B IMMUNIZATION Completed 002, 01/16/2002, 01/16/2002, Additional history exists HPV IMMUNIZATION Aged Out No longer e ligible based on patient's age to complete this topic MENINGITIS IMMUNIZATION Aged Out No l onger eligible based on patient's age to complete this topic Procedures Procedure Name Priority Date/Time Associated Diagnosis Comments EXTRA PURPLE TOP TUBE STAT 11/05/2024 4:03 PM TRAVEL GUIDE EXTRA BLUE TOP TUBE STAT 11/05/2024 4 :03 PM TRAVEL GUIDE EXTRA TUBE STAT 11/05/2024 4:03 PM TRAVEL GUIDE ETHYL ALCOHOL LEVEL STAT 11/05/2024 4 :03 PM TRAVEL GUIDE COMPREHENSIVE METABOLIC PANEL STAT 11/05/2024 4:03 PM TRAVEL GUIDE from Last 3 Months Results * Extra Purple Top Tube (11/05/2024 4:03 PM TRAVEL GUIDE) Hold Specimen [facility] 11/05/2024 5:16 PM TRAVEL GUIDE LABORATORY Blood BLOOD SPECIMEN / Unknown Venipuncture / Unknown 11/05/2024 4:03 PM TRAVEL GUIDE 11/05/2024 4:11 PM TRAVEL GUIDE Da Hensley MD LAB - BLOOD ORDERABLES Final Result LABORATORY [facility] [address], [address] [place] [address], [facility] [phone] * Extra Blue Top Tube (11/05/2024 4:03 PM TRAVEL GUIDE) Hold Specimen [facility] 11/05/2024 5:16 PM TRAVEL GUIDE LABORATORY Blood BLOOD SPECIMEN / Unknown Venipuncture / Unknown 11/05/2024 4:03 PM TRAVEL GUIDE 11/05/2024 4:11 PM TRAVEL GUIDE us aD Hensley MD LAB - BLOOD ORDERABLES Final Result LABORATORY [facility] [address], [address] [place] [address], [place] [phone] * (ABNORMAL) Comprehensive metabolic panel (11/05/2024 4:03 PM TRAVEL GUIDE) Sodium 135 135 - 145 mmol/L 11/05/2024 4:52 PM [facility] Potassium 3.6 3.4 - 5.3 mmol/L 11/05/2024 4:52 PM [facility] Carbon Dioxide (CO2) 22 22 - 29 mmol/L 11/05/2024 4:52 PM [facility] Anion Gap 24(H) 7 - 15 mmol/L 11/05/2024 4:52 PM [facility] Urea Nitrogen 3.5(L) 6.0 - 20.0 mg/dL 11/05/2024 4:52 PM [facility] Creatinine 0.75 0.67 - 1.17 mg/dL 11/05/2024 4:52 PM [facility] GFR Estimate >90 >60 mL/min/1.7 3m2 11/05/2024 4:52 PM [facility] Comment:eGFR calculated usin 2020 CKD-EPI equation. Calcium 8.9 8.8 - 10.4 mg/dL 11/05/2024 4:52 PM [facility] Comment:Reference intervals for this test were updated on 05/06/2024 to reflect our healthy population more accurately. There may be differences in the flagging of prior results with similar values performed with this method. Those prior results can be interpreted in the context of the updated reference intervals. Chloride 89(L) 98 - 107 mmol/L 11/05/2024 4:52 PM [facility] Glucose 297(H) 70 - 99 mg/dL 11/05/2024 4:52 PM [facility] Alkaline Phosphatase 129 40 - 150 U/L 11/05/2024 4:52 PM [facility] AST 11/05/2024 4:52 PM [facility] Comment:Unsatisfactory speci men - hemolyzed ALT 46 0 - 70 U/L 11/05/2024 4:52 PM TRAVEL GUIDE LABORATORY Protein Total 7.5 6.4 - 8.3 g/dL 11/05/2024 4:52 PM TRAVEL GUIDE LABORATORY Albumin 4.3 3.5 - 5.2 g/dL 11/05/2024 4:52 PM TRAVEL GUIDE LABORATORY Bilirubin Total 0.6 <=1.2 mg/dL 11/05/2024 4:52 PM TRAVEL GUIDE LABORATORY Blood BLOOD SPECIMEN / Unknown Venipuncture / Unknown 11/05/2024 4:03 PM TRAVEL GUIDE 11/05/2024 4:11 PM TRAVEL GUIDE Da Hensley MD LAB - BLOOD ORDERABLES Final Result [facility] [address], [address] [place] [address], [place] [phone] * (ABNORMAL) Ethyl Alcohol Level (11/05/2024 4:03 PM TRAVEL GUIDE) Alcohol ethyl 0.43(HH) <=0.01 g/dL 11/05/2024 4:54 PM TRAVEL GUIDE LABORATORY Blood BLOOD SPECIMEN / Unknown Venipuncture / Unknown 11/05/2024 4:03 PM TRAVEL GUIDE 11/05/2024 4:11 PM TRAVEL GUIDE Da Hensley MD LAB - BLOOD ORDERABLES Final Result [facility] [address], [address] [place] [address], [place] [phone] from Last 3 Months Insurance [address] [place] [id number] [employer] [address] [place] [id number] [employer] [address] [place] [id number] [employer] Advance Directives For more information, please contact: [phone] * Full Code (Latest Code Status on File) Date Activated Date Inactivated Comments 07/13/2024 10:05 PM 07/15/2024 1:46 PM All basic a nd advanced life-sustaining interventions are performed as appropriate Question Answer Comments Code status determined by: Discussion with jensene nt/ legal decision maker * Full Code Date Activated Date Inactivated Comments 04/05/2021 11:56 AM 04/06/2021 4:04 PM All basic a nd advanced life-sustaining interventions are performed as appropriate Question Answer Comments Code status determined by: Discussion with jefry nt/ legal decision maker Care Teams Hide Puller Relationship Specialty Start Date End Date No Ref-Primary, Physician PCP - General 09/06/20
--- OUTSIDE RECORDS SUMMARY | 2025-01-26 09:54 | XMS_ITS | Clinical Summary ---
Author Organization [facility] Address [address] [address] Phone Care Team Providers Care Sql Server Consultant Name Role Phone Elsewhere, Pcp Primary Care Provider Unavailabl e Allergies Active Allergy Reactions Criticality Noted Date Comments Fluoxetine Unknown 11/20/2022 Medications * This document contains information received from the source organization and may not represent a complete record from that organization. gabapentin (NEURONTIN) 600 MG tablet Take 1,200 mg by mouth three times a day. Active cloNIDine (CATAPRES) 0.1 MG tablet Take 0.1 mg by mouth two times a day. Active amphetamine-dex troamphetamine (Adderall) 20 MG tablet Take 20 mg by mouth one time a day. 06/14/2023 Active clonazePAM (KlonoPIN) 1 MG tablet TAKE 1 TABLET BY MOUTH TWICE DAILY DIRECTED 07/12/2023 Active Vyvanse 50 MG capsule TAKE 1 CAPSULE BY MOUTH EVERY MORNING DIRECTED 07/17/2023 Active Active Problems Problem Noted Date Diagnosed Date Depression 10/24/2021 Alcohol use disorder, severe, dependence 019 Primary hypertension 10/11/2017 Anxiety state 06/05/2012 Overview (05/29/2024): Problem list name updated by automated process. Provider to review Problem list name updated by automated process. Provider to review Attention deficit hyperactivity disorder (ADHD) 08/27/2002 Overview (05/29/2024): Problem list name updated by automated process. Provider to review Attention Deficit Disorder of Childhood with Hyperactivity Attention deficit disorder with hyperactivity Attention Deficit Disorder of Childhood with Hyperactivity Attention deficit disorder with hyperactivity Problem list name updated by automated process. Provider to review Problem list name updated by automated process. Provider to review Attention Deficit Disorder of Childhood with Hyperactivity Attention deficit disorder with hyperactivity Problem list name updated by automated process. Provider to review Medical History Medical History Date Comments Alcoholism (HCC) Elevated liver enzymes Pancreatitis Primary hypertension 10/11/2017 Social History Tobacco Use Types Packs/Day Years Used Date Smoking Tobacco: Never Passive Smoke Exposure: Never Smokeless Tobacco: Never Tobacco Cessation:Counseling Given: Not Answered Alcohol Use Standard Drinks/Week Comments Yes 0 (1 standard drink = 0.6 oz pur e alcohol) 1/4 gal vodka/day AUDIT-C Answer Date Recorded Frequency of Alcohol Consumption 4 or more times a week 07/05/2019 Average Number of Drinks 10 or more 019 Frequency of Binge Drinking Daily or almost chintan y 07/05/2019 EH IP Custom IPV Answer Date Recorded Do you feel UNSAFE in any of your personal relationships with your family members or any other acquaintances? No 2023 Education Answer Date Recorded What is the highest level of school you have completed or the highest degree you have received? 12th grade 07/06/2019 Sex and Gender Information Value Date Recorded Sex Assigned at Male 07/05/2019 8:32 PM CDT Legal Sex Male 4:49 PM CDT Gender Identity Male 07/05/2019 8:32 PM CDT Sexual Orientation Not on file Occupation Industry Job Start Date Job End Date unemployed Not on file Not on file Not on file Obstetrics History Last Filed Vital Signs Vital Sign Reading Time Taken Comments Blood Pressure 150/116 05/30/2024 11:36 AM CDT Pulse 118 05/30/2024 11:36 AM CDT Temperature 36.3 C (97.3 F) 05/30/2024 12:54 AM CDT Respiratory Rate 22 05/30/2024 11:36 AM CDT Oxygen Saturation 100% 05/30/2024 11:36 AM CDT Inhaled Oxygen Concentration - - Weight 103 kg (227 lb) 07/25/2023 3:04 PM CDT Height 180.3 cm (5' 11) 07/06/2019 10:57 AM CDT Body Mass Index 31.66 07/06/2019 10:57 AM CDT Plan of Treatment Health Maintenance Due Date Last Done Comments Hepatitis B Vaccine (Standin g Order) (1 of 3 - 19+ 3-dose series) 2009 PERTUSSIS (Standing Order) 2009 TETANUS (Standing Order) 2009 COVID-19 Vaccine (2023-2 5 season) 2024 Influenza Vaccine Seasonal (Standing Order) (#1) 2024 HPV Vaccine (Standing Order) Aged Out No longer eligible based on patient's age to complete this topic Pneumococcal/PCV20 Vaccine: Pediatrics (2-5 yrs) and At-Risk Patients (6-49 yrs) (Standing Order) Aged Out No longer eligible b ased on patient's age to complete this topic [address] 1942 [address] * Guarantor: MADELINE MCKEON Account Type Relation to Patient Date of Phone Billing Address [facility] [address] Advance Directives For more information, please contact: [phone] * Full Code (Latest Code Status on File) Date Activated Date Inactivated Comments 07/05/2019 8:58 PM 07/07/2019 7:07 PM Care Teams Sql Server Consultant Relationship Specialty Start Date End Date Elsewhere, Pcp PCP - General 05/30/24
--- OUTSIDE RECORDS SUMMARY | 2025-01-26 09:55 | XMS_ITS | Clinical Summary ---
Author Organization [facility] Address [address], [place] [address] Care Team Providers Care Novelty Printing Machine Operator Name Role Phone Found, No Pcp MD Primary Care Provider Unavailab le Source Comments You are receiving this document as you are listed as the primary care provider,follow-up provider, or the patient has been referred to you for consultation.This is in compliance with the Medicare and[facility], In[facility] EHR Incentive Program,which states Providers who transition their patient to another setting of careor provider of care or refers their patient to another provider of care shouldprovide summary care record for each transition of care or referral. [facility] [facility] Allergies No known active allergies Medications * This document contains information received from the source organization and may not represent a complete record from that organization. cloNIDine (CATAPRES) 0.1 MG tablet Take 1 Tablet (0.1 mg) by mouth three times a day. Active clonazePAM (KLONOPIN) 1 MG tablet Take 1 Tablet (1 mg) by mouth two times a day. 04/10/2023 Active gabapentin (NEURONTIN) 600 MG tablet Take 1 Tablet (600 mg) by mouth 4 times a day. Active lisdexamfetamin e (VYVANSE) 50 MG capsule Take 1 Capsule (50 mg) by mouth daily. 01/25/2023 Active Active Problems Problem Noted Date Diagnosed Date CAREPLAN: Restriction 02/15/2024 Overview (02/15/2024): RECOMMEND CHECKING A MULTI-STATE PHARMACY QUERY BEFORE CONSIDERING ANY ADDITIONAL CONTROLLED SUBSTANCES FOR THIS PATIENT Member Name: MADELINE MCKEON [facility] [facility] ID: [id number] PMI: : 1990 Restricted Member Restriction Begin Date: 07/23/2022 Restriction End Date: 07/23/2025 Member is Restricted to accessing the following providers only: PCP: KATIE COSME PCC: [facility] PCC UC: [facility] Hospital: [facility] Pharmacy: [id number] Pharmacy Address: [address] [place] [address] Pharmacy RRP Pattern Developer, Annita Vika, , [id number] Referrals are not required from the designated PCP for the following types of care regardless of plan type: Mental and chemical health counseling; Physical, occupational, and speech therapies; care program resident and acupuncture; Routine lab work at designated hospital or clinic; Routine dental and vision care; Medication Therapy Management (MTM); Durable medical equipment (DME); and Diagnostic procedures at independent diagnostic testing facilities. *MEDICAID: Referrals are required from the designated PCP for any other care/providers, including but not limited to orthopedics, cardiology, general surgery, OBGYN, and psychiatry or addiction medicine. *COMMERCIAL: Referrals are required from the designated PCP for any other care/providers, including but not limited to orthopedics, cardiology, and general surgery. Referrals are NOT required for OBGYN and Psychiatry. Contact designated P Pattern Developer for questions or further information. ALL CONTROLLED MEDICATIONS FOR OUTPATIENT USE MUST BE PRESCRIBED BY (provider name) - For EXCEPTIONS AND/OR REFERRALS - CONTACT P CINETECHNICIAN. Benzodiazepine dependence 04/13/2023 Alcohol abuse 04/09/2022 Alcohol-induced acute pancre atitis without infection or necrosis 07/20/2020 Resolved Problems Problem Noted Date Diagnosed Date Resolved Date Alcohol dependence with with drawal, uncomplicated 04/13/2023 03/30/2024 Encounters Date Type Department Care Team Description 11/05/2024 10:06 PM VEHICLE INSURANCE AGENT - 11/06/2024 6:44 AM [facility] [address] [facility] [place] [address] Tao Burnham MD Alcohol withdrawal syndrome without complication (HRC); Homelessness; Hypomagnesemia Discharge Disposition: Home from Last 3 Months Family History Medical History Relation Name Comments Alcohol Abuse Father Anxiety Father Anxiety Mother Relation Name Status Comments Father Mother Social History Tobacco Use Types Packs/Day Years Used Date Smoking Tobacco: Never Tobacco Cessation:Counseling Given: Not Answered Alcohol Use Standard Drinks/Week Comments Yes 0 (1 standard drink = 0.6 oz pur e alcohol) currently intoxicated Sex and Gender Information Value Date Recorded Sex Assigned at Not on file Legal Sex Male 4:58 AM CDT Gender Identity Not on file Sexual Orientation Not on file Last Filed Vital Signs Vital Sign Reading Time Taken Comments Blood Pressure 159/106 11/06/2024 6:36 AM VEHICLE INSURANCE AGENT Pulse 115 11/06/2024 6:36 AM VEHICLE INSURANCE AGENT Temperature 37 C (98.6 F) 11/05/2024 10:10 PM VEHICLE INSURANCE AGENT Respiratory Rate 20 11/05/2024 10:3 1 PM VEHICLE INSURANCE AGENT Oxygen Saturation 96% 11/06/2024 6:36 AM VEHICLE INSURANCE AGENT Inhaled Oxygen Concentration - - Weight 120.1 kg (264 lb 11.2 oz) 04/14/2023 2:05 AM CDT Height 182.9 cm (6') 04/14/2023 2:05 AM CDT Body Mass Index 35.9 04/14/2023 2:05 AM CDT Plan of Treatment Health Maintenance Due Date Last Done Comments Hep C Screening (Preventive Services) 1990 HIV Screening (Preventive Services) 2006 Adult Preventive Visit 02/04/2008 HepB (1) 2009 Pneumococcal (1 of 2 - PCV) 2009 COVID-19 Vaccine (2 - season) 2024 02/13/2021 Influenza (#1) 2024 08/01/2020, 08/07/2019 DTaP/Tdap/Td (7 - Tdap) 05/12/2026 05/12/20 16, 06/06/1995, 02/28/1993, Additional history exists Zoster/Shingles (1 of 2) 02/04/2040 Hib Completed 05/21/1991, 02/12/1991 IPV (Polio) Completed 06/06/1995, 02/19, 1990, Additional history exists HPV Vaccine Aged Out No longer eligi ble based on patient's age to complete this topic HepA Aged Out No longer eligi ble based on patient's age to complete this topic MCV4 Aged Out No longer eligi ble based on patient's age to complete this topic Meningococcal B Aged Out No longer el igible based on patient's age to complete this topic Procedures Procedure Name Priority Date/Time Associated Diagnosis Comments ALCOHOL,ETHYL STAT Add-On 11/05/2024 11:59 PM VEHICLE INSURANCE AGENT RBC AND PLATELET MORPHOLOGY STAT 11/05/2024 11:59 PM VEHICLE INSURANCE AGENT COMPLETE BLOOD COUNT-W/DIFF STAT 11/05/2024 11:59 PM VEHICLE INSURANCE AGENT MAGNESIUM STAT 11/05/2024 11:59 PM VEHICLE INSURANCE AGENT COMPREHENSIVE METABOLIC PANEL STAT 11/05/2024 11:59 PM VEHICLE INSURANCE AGENT CBC AND DIFFERENTIAL PANEL STAT 11/05/2024 11:59 PM VEHICLE INSURANCE AGENT GLUCOSE, WHOLE BLOOD POCT Routine 11/05/2024 10:32 PM VEHICLE INSURANCE AGENT ECG 12 LEAD INPATIENT STAT 11/05/2024 10:31 PM VEHICLE INSURANCE AGENT EXTRA URINE TUBE Routine 11/05/2024 10:2 5 PM VEHICLE INSURANCE AGENT from Last 3 Months Results * (ABNORMAL) Morphology-RBC and Platelet (11/05/2024 11:59 PM VEHICLE INSURANCE AGENT) RBC Morphology Reviewed 11/06/2024 12:37 AM VEHICLE INSURANCE AGENT [facility] Platelet Estimate Decreased(A) Adequate 11/06/2024 12:37 AM VEHICLE INSURANCE AGENT [facility] Blood Venipuncture / Unknown 11/05/2024 11:59 PM VEHICLE INSURANCE AGENT 11/06/2024 12:09 AM VEHICLE INSURANCE AGENT us Tao Burnham MD LAB_1 Final Resul t [facility] [address] * (ABNORMAL) Complete Blood Count-W/Diff (11/05/2024 11:59 PM VEHICLE INSURANCE AGENT) [facility] Signature WBC 6.0 3.5 - 10.5 x10(9)/L 11/06/2024 12:37 AM VEHICLE INSURANCE AGENT [facility] RBC 4.86 4.32 - 5.72 x10(12)/L 11/06/2024 12:37 AM VEHICLE INSURANCE AGENT [facility] Hemoglobin 16.3 13.5 - 17.5 g/dL 11/06/2024 12:37 AM VEHICLE INSURANCE AGENT [facility] HCT 44.6 38.8 - 50.0 % 11/06/2024 12:37 AM VEHICLE INSURANCE AGENT [facility] MCV 91.8 80.0 - 100.0 fL 11/06/2024 12:37 AM VEHICLE INSURANCE AGENT [facility] MCH 33.5(H) 27.6 - 33.3 pg 11/06/2024 12:37 AM VEHICLE INSURANCE AGENT [facility] MCHC 36.5(H) 31.5 - 35.2 g/dL 11/06/2024 12:37 AM VEHICLE INSURANCE AGENT [facility] RDW 14.3 11.9 - 15.5 % 11/06/2024 12:37 AM VEHICLE INSURANCE AGENT [facility] Platelets 103(L) 150 - 450 x10(9)/L 11/06/2024 12:37 AM VEHICLE INSURANCE AGENT [facility] Automated NRBC 0 <=0 /100 WBC 11/06/2024 12:37 AM VEHICLE INSURANCE AGENT [facility] Neutrophil Absolute 4.5 1.7 - 7.0 10(9)/L 11/06/2024 12:37 AM VEHICLE INSURANCE AGENT [facility] Lymphocyte Absolute 1.0 1.0 - 4.8 10(9)/L 11/06/2024 12:37 AM VEHICLE INSURANCE AGENT [facility] Monocyte Absolute 0.5 0.2 - 0.9 10(9)/L 11/06/2024 12:37 AM VEHICLE INSURANCE AGENT [facility] Eosinophil Absolute 0.0 0.0 - 0.5 10(9)/L 11/06/2024 12:37 AM VEHICLE INSURANCE AGENT [facility] Basophil Absolute 0.0 0.0 - 0.3 10(9)/L 11/06/2024 12:37 AM VEHICLE INSURANCE AGENT [facility] Immature Granulocyte % 0.3 0.0 - 0.5 % 11/06/2024 12:37 AM VEHICLE INSURANCE AGENT [facility] Blood Venipuncture / Unknown 11/05/2024 11:59 PM VEHICLE INSURANCE AGENT 11/06/2024 12:09 AM VEHICLE INSURANCE AGENT us Tao Burnham MD LAB_1 Final Resul t [facility] [address] [place] [address], [facility] * (ABNORMAL) Comp Metabolic Panel (11/05/2024 11:59 PM VEHICLE INSURANCE AGENT) Sodium 133(L) 136 - 145 mmol/L 11/06/2024 12:35 AM VEHICLE INSURANCE AGENT [facility] Potassium 3.8 3.5 - 5.1 mmol/L 11/06/2024 12:35 AM VEHICLE INSURANCE AGENT [facility] Chloride 94(L) 98 - 109 mmol/L 11/06/2024 12:35 AM VEHICLE INSURANCE AGENT [facility] CO2 23 20 - 29 mmol/L 11/06/2024 12:35 AM VEHICLE INSURANCE AGENT [facility] Anion Gap 16 6 - 16 mmol/L 11/06/2024 12:35 AM VEHICLE INSURANCE AGENT [facility] Calcium 9.6 8.4 - 10.4 mg/dL 11/06/2024 12:35 AM VEHICLE INSURANCE AGENT [facility] BUN 5(L) 7 - 26 mg/dL 11/06/2024 12:35 AM VEHICLE INSURANCE AGENT [facility] Creatinine 0.63(L) 0.73 - 1.18 mg/dL 11/06/2024 12:35 AM VEHICLE INSURANCE AGENT [facility] Alkaline Phosphatase 114 40 - 150 U/L 11/06/2024 12:35 AM VEHICLE INSURANCE AGENT [facility] AST (SGOT) 51(H) 10 - 40 U/L 11/06/2024 12:35 AM VEHICLE INSURANCE AGENT [facility] ALT (SGPT) 43 <=55 U/L 11/06/2024 12:35 AM VEHICLE INSURANCE AGENT [facility] Bilirubin, Total 0.9 0.2 - 1.2 mg/dL 11/06/2024 12:35 AM VEHICLE INSURANCE AGENT [facility] Protein, Total 8.0 6.4 - 8.3 g/dL 11/06/2024 12:35 AM VEHICLE INSURANCE AGENT [facility] Albumin 4.0 3.5 - 5.0 g/dL 11/06/2024 12:35 AM VEHICLE INSURANCE AGENT [facility] Glucose 264(H) 70 - 100 mg/dL 11/06/2024 12:35 AM VEHICLE INSURANCE AGENT [facility] Comment:The given reference range is for the fasting state. Non-fasting reference range for glucose is 70 - 180 mg/dL. GFR, Estimated >60 >60 mL/min/1.7 3m2 11/06/2024 12:35 AM VEHICLE INSURANCE AGENT [facility] Blood Venipuncture / Unknown 11/05/2024 11:59 PM VEHICLE INSURANCE AGENT 11/06/2024 12:09 AM VEHICLE INSURANCE AGENT us Tao Burnham MD LAB_1 Final Resul t Performing Organization Address [facility] Phone Number [facility] [address] [place] [address] * (ABNORMAL) Magnesium (11/05/2024 11:59 PM VEHICLE INSURANCE AGENT) Magnesium 1.4(L) 1.6 - 2.6 mg/dL 11/06/2024 12:35 AM VEHICLE INSURANCE AGENT [facility] Blood Venipuncture / Unknown 11/05/2024 11:59 PM VEHICLE INSURANCE AGENT 11/06/2024 12:09 AM VEHICLE INSURANCE AGENT us Tao Burnham MD LAB_1 Final Resul t Performing Organization Address [facility] Phone Number [facility] [address] [place] [address] * (ABNORMAL) Alcohol,Ethyl Level (11/05/2024 11:59 PM VEHICLE INSURANCE AGENT) Ethyl Alcohol 0.08(H) <=0.01 g/dL 11/06/2024 1:05 AM VEHICLE INSURANCE AGENT [facility] Blood Venipuncture / Unknown 11/05/2024 11:59 PM VEHICLE INSURANCE AGENT 11/06/2024 12:09 AM VEHICLE INSURANCE AGENT Narrative [facility] - 11/06/2024 1:05 AM VEHICLE INSURANCE AGENT For medical purposes only; not valid for forensic, legal, or employment use. us Tao Burnham MD LAB_1 Final Resul t Performing Organization Address [facility] Co de Phone Number [facility] [address] * (ABNORMAL) Glucose, Whole Blood POCT (11/05/2024 10:32 PM VEHICLE INSURANCE AGENT) Glucose, Whole Blood 269(H) 70 - 180 mg/dL 11/05/2024 10:34 PM VEHICLE INSURANCE AGENT [facility] Performing Location [facility] 11/05/2024 10:34 PM VEHICLE INSURANCE AGENT [facility] Blood 11/05/2024 10:3 2 PM VEHICLE INSURANCE AGENT 11/05/2024 10:34 PM VEHICLE INSURANCE AGENT us Interface Provider LAB_1 Final Resu lt Performing Organization Address [facility] de Phone Number [facility] [address] * ECG 12 Lead (11/05/2024 10:31 PM VEHICLE INSURANCE AGENT) Ventricular Rate 116 BPM [facility] Atrial Rate 116 BPM [facility] P-R Interval 166 ms [facility] QRS Duration 94 ms [facility] QT 366 ms [facility] QTC 508 ms [facility] P [place] 45 degrees [facility] R [place] 17 degrees [facility] T [place] 50 degrees [facility] 11/05/2024 10:3 1 PM VEHICLE INSURANCE AGENT Narrative [facility] - 11/06/2024 5:40 AM VEHICLE INSURANCE AGENT Sinus tachycardia with Fusion complexes Minimal voltage criteria for LVH, may be normal variant Borderline ECG When compared with ECG of 13-APR-2023 18:42, Fusion complexes are now Present Confirmed by Tao Burnham ([id number]) on 11/06/2024 5:40:23 AM Procedure Note Tao Burnham MD - 11/06/2024 Sinus tachycardia with Fusion complexes Minimal voltage criteria for LVH, may be normal variant Borderline ECG When compared with ECG of 13-APR-2023 18:42, Fusion complexes are now Present Confirmed by Tao Burnham ([id number]) on 11/06/2024 5:40:23 AM us Paul A Donnell MD PN ECG ORDERABLES Final Resul t [facility] [address] [place] [id number] * Extra Urine Tube (11/05/2024 10:25 PM VEHICLE INSURANCE AGENT) Extra Urine Tube Specimen will be held for 24 hours 11/06/2024 12:00 AM VEHICLE INSURANCE AGENT [facility] Urine URINE SPECIMEN COLLECTION, CLEAN CATCH / Unknown Non-blood Collection / Unknown 11/05/2024 10:25 PM VEHICLE INSURANCE AGENT 11/05/2024 10:29 PM VEHICLE INSURANCE AGENT us Paul Jacobo MD LAB_1 Final Result Performing Organization Address City/[facility]/ZIP Co de Phone Number [facility] [address] from Last 3 Months Insurance P Advance Directives * Full Code (Latest Code Status on File) Date Activated Date Inactivated Comments 04/13/2023 11:04 PM 04/15/2023 1:09 PM * Full Code Date Activated Date Inactivated Comments 07/17/2020 6:15 PM 07/21/2020 4:23 PM Care Teams Novelty Printing Machine Operator Relationship Specialty Start Date End Date Found, No Pcp, [id number] [place] [address] PCP - General 04/13/23
== END 2025-01-26 09:55 | disposition home or self-care (01) ==
LOC: ED 01-26 09:52
PROVIDERS: Emergency Provider Family Medicine
DX: F10.229 Alcohol dependence with intoxication, unspecified (principal)
CPT/HCPCS: 36415; 80048; 80076; 80143; 80179; 80306; 82077; 83735; 84100; 85025; 85610; 85730; 93005; 94761; 96374; 99284; J2060; J7030

== ENCOUNTER 2025-04-08 06:06 | Outpatient (CLI) | payer MEDICAID, SELFPAY ==
--- OUTSIDE RECORDS SUMMARY | 2025-04-05 17:24 | XMS_ITS | Encounter Summary ---
Author Organization [facility] Address [address] [place] [address] Care Team Providers Care Rod Welder Name Role Phone Found, No Pcp MD Primary Care Provider Unavailab le Reason for Visit * Reason Comments AGITATION Encounter Details Date Type Department Care Team (Late st Contact Info) Description 04/05/2025 5:24 PM CDT - 04/05/2025 10:50 PM CDT Emergency [facility] Emergency Dept [address] [place] [address] Ja Zegn MD [address] [place] [phone] Acute alcoholic intoxication without complication (HRC) (Primary [...] Rodriguez RN - 04/05/2025 10:49 PM CDT [facility] ED Nursing Discharge Note Arrival Information: Patient arrived: Ambulance Patient escorted by: EMS/Ambulance Discharge Information: Patient Accompanied By: Police Transport Mode: Wheelchair, Police Discharge Disposition: Correctional Facility Facility Name: [facility] Confirmed physical address of discharge location with (enter name): police, and aid at halfway Verbal report given to (enter name): police, and aid at halfway Callback Number: [phone] Discharge Instructions given and explained to patient: Follow up appointments reviewed LDA in place: Patient/family/legal district sales representative in agreement with discharge plan? Yes Does patient require hand-off or assistance with discharge plan: Yes: Hand off of ride/discharge plan given to: police and halfway staff Belongings and medication returned to patient [...] wrong, I don't need to go to halfway. Pt able to stand and take steps into a wheelchair. Pt verbally aggressive with police. Pt taken to halfway by police officers in wheelchair. * Karo Rodriguez RN - 04/05/2025 8:27 PM CDT Pt awake asking to use urinal. Pt given urinal. This RN asked if he needed help and pt states No!. Pt threw urinal on the ground. Pt now resting with eyes closed again. * Sasah Don RN - 04/05/2025 5:44 PM CDT Unable to complete vitals at this time as pt remains agitated and aggressive. Will obtain once pt more compliant with cares. * Gorge Whiting MD - 04/05/2025 5:28 PM CDT [facility] Emergency Medicine Visit Note Chief Complaint: No [...] Whiting MD ED Course as of 04/05/25 0500 Sun Apr 05, 2025 1513 ATTENDING: I personally saw the patient, performed goins elements of the visit, and supervised patient care with the primary teacher. MDM: 35 yr man with alcohol [...] and a spit tay under arrest by security police. History of recent events unable to be [...] Course User Index [BW] Ja Zeng MD [JUNAY] Gorge Whiting MD Clinical Impressions as of [...] RN) documented in this encounter Care Teams Rod Welder Relationship Specialty Start Date End Date Found, No Pcp, [address] [place] [address] PCP - General 04/13/23 documented as of this encounter
--- OUTSIDE RECORDS SUMMARY | 2025-04-10 00:13 | XMS_ITS | Clinical Summary ---
Author Organization [facility] Address [address] [place] [address] Care Team Providers Care Geriatric Personal Care Aide Name Role Phone Primitivo Apple MD Primary [...] Type Department Care Team Description 02/10/2025 Telephone [facility] [address] [place] [address] Primitivo Apple MD Form (Network [...] 1 Dio graduated from treatment. 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 Gender Identity Not on file Sexual Orientation [...] Tdap Completed 05/12/2016 Insurance 72 [place] [address] [place] * Guarantor: [facility] Account Type Relation to Patient Date of Phone Billing Address [facility] Employer [address] [place] [address] Advance Directives * Full Code (Latest Code [...] Code Status Discussion: Reviewed Preferences Care Teams Geriatric Personal Care Aide Relationship Specialty [place] [address] [place] [address] PCP - General Family Practice 01/29/24
--- OUTSIDE RECORDS SUMMARY | 2025-04-10 00:13 | XMS_ITS | Clinical Summary ---
Author Organization [facility] Address [address] [place] [address] Care Team Providers Care Audio Engineer Name Role Phone Clinic, No Primary Unavailable [...] age to complete this topic Care Teams Audio Engineer Relationship Specialty Start Date End Date Clinic, No Primary PCP - Primary Care Clinic 02/15/22 Doctor, No No ad PCP - General Radiology 02/15/22
--- OUTSIDE RECORDS SUMMARY | 2025-04-10 00:13 | XMS_ITS | Clinical Summary ---
Author Organization [place] Address [facility] 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 Gender Identity Not on file Sexual Orientation Not on file Last Filed Vital Signs Vital Sign Reading Time Taken Comments Blood Pressure 115/79 11/05/2024 3:05 PM PERCUSSION INSTRUMENT REPAIRER Pulse 106 11/05/2024 3:05 PM PERCUSSION INSTRUMENT REPAIRER Temperature 36.9 C (98.4 F) 11/05/2024 3:05 PM PERCUSSION INSTRUMENT REPAIRER Respiratory Rate 20 11/05/2024 6:00 PM PERCUSSION INSTRUMENT REPAIRER Oxygen Saturation 93% 11/05/2024 3:05 PM PERCUSSION INSTRUMENT REPAIRER Inhaled Oxygen Concentration - - Weight 121.6 [...] COMPREHENSIVE METABOLIC PANEL STAT 11/05/2024 4:03 PM PERCUSSION INSTRUMENT REPAIRER from Last 3 Months or Most Recently Relevant to Health Maintenance Results * (ABNORMAL) Comprehensive metabolic panel (11/05/2024 4:03 PM PERCUSSION INSTRUMENT REPAIRER) Sodium 135 135 - 145 mmol/L 11/05/2024 4:52 PM [facility] Potassium 3.6 3.4 - 5.3 mmol/L 11/05/2024 4:52 PM [facility] Carbon Dioxide (CO2) 22 22 - 29 mmol/L 11/05/2024 4:52 PM [facility] Anion Gap 24(H) 7 - 15 mmol/L 11/05/2024 4:52 PM [facility] Urea Nitrogen 3.5(L) 6.0 - 20.0 mg/dL 11/05/2024 4:52 PM [facility] Creatinine 0.75 0.67 - 1.17 mg/dL 11/05/2024 4:52 PM [facility] GFR Estimate >90 >60 mL/min/1.7 3m2 11/05/2024 4:52 PM [facility] Comment:eGFR calculated usin g 2020 CKD-EPI equation. Calcium 8.9 8.8 - 10.4 mg/dL 11/05/2024 4:52 PM [facility] Comment:Reference intervals for this test were updated on 05/06/2024 to reflect our healthy population more accurately. There may be differences in the flagging of prior results with similar values performed with this method. Those prior results can be interpreted in the context of the updated reference intervals. Chloride 89(L) 98 - 107 mmol/L 11/05/2024 4:52 PM [facility] Glucose 297(H) 70 - 99 mg/dL 11/05/2024 4:52 PM [facility] Alkaline Phosphatase 129 40 - 150 U/L 11/05/2024 4:52 PM [facility] AST 11/05/2024 4:52 PM [facility] Comment:Unsatisfactory speci men - hemolyzed ALT 46 0 - 70 U/L 11/05/2024 4:52 PM [facility] Protein Total 7.5 6.4 - 8.3 g/dL 11/05/2024 4:52 PM PERCUSSION INSTRUMENT REPAIRER [facility] Albumin 4.3 3.5 - 5.2 g/dL 11/05/2024 4:52 PM PERCUSSION INSTRUMENT REPAIRER [facility] Bilirubin Total 0.6 <=1.2 mg/dL 11/05/2024 4:52 PM PERCUSSION INSTRUMENT [facility]PA[facility] Blood BLOOD SPECIMEN / Unknown Venipuncture / Unknown 11/05/2024 4:03 PM PERCUSSION INSTRUMENT REPAIRER 11/05/2024 4:11 PM PERCUSSION INSTRUMENT REPAIRER us Da Hensley MD LAB - BLOOD ORDERABLES Final Result LABORATORY [facility] [address], [address] [place] [address], [facility] [phone] from Last 3 Months or Most Recently Relevant to Health Maintenance [facility] [address] [place] [address] [employer] [address] [place] [address] [employer] Advance Directives For more information, please contact: [phone] * Full Code (Latest Code Status on [...] jefry nt/ legal decision maker Care Teams Cuffer Relationship Specialty Start Date End Date No Ref-Primary, Physician PCP - General 09/06/20
--- OUTSIDE RECORDS SUMMARY | 2025-04-10 00:13 | XMS_ITS | Clinical Summary ---
Author Organization [facility] Address [address] [address] Phone Care Team Providers Care Boat Canvas Maker Installer Name Role Phone Elsewhere, Pcp Primary Care [...] age to complete this topic Insurance 1941 [address] [facility] Member Subscriber Plan / Payer (Ef fective 2024-Present) Name:Madeline Mckeon Relation to Subscriber:Self Name:Madeline Mckeon Payer ID:[id number] (NAIC) Group ID:Not on file Type:[facility] Address: [place] [id number] * Guarantor: MADELINE MCKEON Account Type Relation to Patient Date of Phone Billing Address [facility] [address] Advance Directives For more information, please contact: [phone] * Full Code (Latest Code Status on File) Date Activated Date Inactivated Comments 07/05/2019 8:58 PM 07/07/2019 7:07 PM Care Teams Boat Canvas Maker Installer Relationship Specialty Start Date End Date Elsewhere, Pcp PCP - General 05/30/24
--- OUTSIDE RECORDS SUMMARY | 2025-04-10 00:14 | XMS_ITS | Referral Summary ---
Author Organization [facility] Address [address] [place] [address] Care Team Providers Care Back Joiner Name Role Phone Clinic, No Primary Unavailable [...] of Treatment Not on file Care Teams Back Joiner Relationship Specialty Start Date End Date Clinic, No Primary PCP - Primary Care Clinic 02/15/22 Doctor, No No ad PCP - General Radiology 02/15/22
--- OUTSIDE RECORDS SUMMARY | 2025-04-10 00:14 | XMS_ITS | Clinical Summary ---
Author Organization [facility] Address [address], [place] [address] Care Team Providers Care Newspaper Distributor Supervisor Name Role Phone Found, No Pcp MD Primary Care Provider Unavailab le Source Comments You are receiving this document as you are listed as the primary care provider,follow-up provider, or the patient has been referred to you for consultation.This is in compliance with the Medicare and[facility] Hospitalca[facility] EHR Incentive Program,which states Providers who transition their patient to another setting of careor provider of care or refers their patient to another provider of care shouldprovide summary care record for each transition of care or referral. [employer] [facility] Allergies No known active allergies Medications * [...] FOR THIS PATIENT Member Name: MADELINE MCKEON [employer] ID: [id number] PMI: : 1990 Restricted Member Restriction Begin Date: 07/23/2022 Restriction End Date: 07/23/2025 Member is Restricted to accessing the following providers only: PCP: KATIE COSME PCC: [facility] PCC UC: [facility]- Hospital: [facility] Pharmacy: [id number] Pharmacy Address: [address] [place] [address] Pharmacy RRP Social Worker Clinical, Annita Vika, , [id number] Referrals are not required from the designated PCP for the following types of care regardless of plan type: Mental and chemical health counseling; Physical, occupational, and speech therapies; care technician and acupuncture; Routine lab work at designated [...] for OBGYN and Psychiatry. Contact designated P Social Worker Clinical for questions or further information. ALL CONTROLLED MEDICATIONS FOR OUTPATIENT USE MUST BE PRESCRIBED BY (provider name) - For EXCEPTIONS AND/OR REFERRALS - CONTACT P CHANNEL MARKETING SPECIALIST. Benzodiazepine dependence 04/13/2023 Alcohol abuse 04/09/2022 Alcohol-induced acute pancre atitis without infection or necrosis 07/20/2020 Resolved Problems Problem Noted Date Diagnosed Date Resolved Date Alcohol dependence with with drawal, uncomplicated 04/13/2023 03/30/2024 Encounters Date Type Department Care Team Description 04/05/2025 5:24 PM CDT - 04/05/2025 10:50 PM CDT [facility] [address] [place] [id number] Ja Zeng MD Acute alcoholic intoxication without [...] 37 C (98.6 F) 11/05/2024 10:10 PM RADIO ENGINEER Respiratory Rate 20 04/05/2025 9:45 PM CDT [...] 6:15 PM 07/21/2020 4:23 PM Care Teams Newspaper Distributor Supervisor Relationship Specialty Start Date End Date Found, No Pcp, [address] [place] [place] [address] PCP - General 04/13/23
== END 2025-04-08 06:07 | disposition home or self-care (01) ==
PROVIDERS: Visit Provider Family Medicine
DX: R41.82 Altered mental status, unspecified (principal); S89.91XA Unspecified injury of right lower leg, initial encounter; S89.92XA Unspecified injury of left lower leg, initial encounter; S59.912A Unspecified injury of left forearm, initial encounter; Y93.9 Activity, unspecified; Y92.9 Unspecified place or not applicable
CPT/HCPCS: A0425; A0429

== ENCOUNTER 2025-04-08 06:48 | Emergency (ER) | payer MEDICAID, SELFPAY ==
--- OUTSIDE RECORDS SUMMARY | 2025-04-05 17:24 | XMS_ITS | Encounter Summary ---
Author Organization [facility] Address [address] [place] [address] Care Team Providers Care Daily Release And Dupe Printer Name Role Phone Found, No Pcp MD Primary Care Provider Unavailab le Reason for Visit * Reason Comments AGITATION Encounter Details Date Type Department Care Team (Late st Contact Info) Description 04/05/2025 5:24 PM CDT - 04/05/2025 10:50 PM CDT Emergency [facility] Emergency Dept [address] [place] [id number] Ja Zeng MD [address] [place] [id number] Acute alcoholic intoxication without complication (HRC) (Primary Dx) Discharge Disposition: Home Social History Tobacco Use Types Packs/Day Years Used Date Smoking Tobacco: Never Alcohol Use Standard Drinks/Week Comments Yes 0 (1 standard drink = 0.6 oz pur e alcohol) currently intoxicated Humiliation, Afraid, Rape, a nd Kick questionnaire Answer Date Recorded Within the last year, have y ou been afraid of your partner or ex-partner? Patient unable to answer 04/05/2025 Within the last year, have y ou been humiliated or emotionally abused in other ways by your partner or ex-partner? Patient unable to answer 04/05/2025 Within the last year, have y ou been kicked, hit, slapped, or otherwise physically hurt by your partner or ex-partner? Patient unable to answer 04/05/2025 Within the last year, have y ou been raped or forced to have any kind of sexual activity by your partner or ex-partner? Patient unable to answer 04/05/2025 Sex and Gender Information Value Date Recorded Sex Assigned at Not on file Legal Sex Male 4:58 AM CDT Gender Identity Not on file Sexual Orientation Not on file documented as of this encounter Last Filed Vital Signs Vital Sign Reading Time Taken Comments Blood Pressure 110/57 04/05/2025 10:15 PM CDT Pulse 108 04/05/2025 10:15 PM CDT Temperature - - Respiratory Rate 20 04/05/2025 9:45 PM CDT Oxygen Saturation 96% 04/05/2025 10:30 PM CDT Inhaled Oxygen Concentration - - Weight - - Height - - Body Mass Index - - documented in this encounter Functional Status documented as of this encounter Discharge Instructions * Discharge Instructions* Gorge Whiting MD - 04/05/2025 10:40 PM CDT You were seen today for evaluation your alcohol ingestion. You have been observed in the Emergency Department and are now able to walk on your own and are tolerating fluids/food. I recommend you stopdrinking alcohol especially to the extent of being unable to care for yourself. If you develop signs of alcohol withdrawal such as shaking, seizures, palpitations, inability to keep down fluids, worsening or uncontrolled pain, confusion, or for any other concerning symptoms. documented in this encounter Medications at Time of Discharge clonazePAM (KLONOPIN) 1 MG tablet Take 1 Tablet (1 mg) by mouth two times a day. 04/10/2023 cloNIDine (CATAPRES) 0.1 MG tablet Take 1 Tablet (0.1 mg) by mouth three times a day. gabapentin (NEURONTIN) 600 MG tablet Take 1 Tablet (600 mg) by mouth 4 times a day. lisdexamfetamine (VYVANSE) 50 MG capsule Take 1 Capsule (50 mg) by mouth daily. 01/25/2023 documented as of this encounter ED Notes * Karo Rodriguez RN - 04/05/2025 10:49 PM CDT [facility] ED Nursing Discharge Note Arrival Information: Patient arrived: Ambulance Patient escorted by: EMS/Ambulance Discharge Information: Patient Accompanied By: Police Transport Mode: Wheelchair, Police Discharge Disposition: Correctional Facility Facility Name: [facility] Confirmed physical address of discharge location with (enter name): police, and aid at skilled nursing Verbal report given to (enter name): police, and aid at skilled nursing Callback Number: [phone] Discharge Instructions given and explained to patient: Follow up appointments reviewed LDA in place: Patient/family/legal telephone services sales representative in agreement with discharge plan? Yes Does patient require hand-off or assistance with discharge plan: Yes: Hand off of ride/discharge plan given to: police and skilled nursing staff Belongings and medication returned to patient and prompted to retrieve weapons: Yes Patient level of pain on discharge: (0-10) Pain Rating: Rest: 0 Holds documented by nursing during this visit - reviewed chart for most current hold status: Yes Legal Status Orders (From admission, onward) None * Karo Rodriguez RN - 04/05/2025 10:45 PM CDT Pt stating I didn't do anything wrong, I don't need to go to skilled nursing. Pt able to stand and take steps into a wheelchair. Pt verbally aggressive with police. Pt taken to skilled nursing by police officers in wheelchair. * Karo Rodriguez RN - 04/05/2025 8:27 PM CDT Pt awake asking to use urinal. Pt given urinal. This RN asked if he needed help and pt states No!. Pt threw urinal on the ground. Pt now resting with eyes closed again. * Sasha Don RN - 04/05/2025 5:44 PM CDT Unable to complete vitals at this time as pt remains agitated and aggressive. Will obtain once pt more compliant with cares. * Gorge Whiting MD - 04/05/2025 5:28 PM CDT [facility] Emergency Medicine Visit Note Chief Complaint: No chief complaint on file. HPI Onur Mckeon is a 35 y.o. old male with a history of alcohol-induced pancreatitis, severe alcohol use disorder, benzodiazepine dependence, who presents for evaluation of agitation. Patient comes in from sob living, report from staff there was that patient has been drinking alcohol and taken 6 tablets of Ativan, unknown dose. He was very combative, agitated with medics and was put in 4 point restraints as well as a spit tay. On arrival, patient not providing further history. Triage Vitals Temp -- Temp src -- Pulse 04/05/25 1813 (!) 141 Resp 04/05/25 1815 (!) 22 BP 04/05/25 1815 94/63 SpO2 04/05/25 1813 97 % Physical Exam General: Spit tay in place. Intermittently agitated, yelling out and pulling at restraints. HEENT: Atraumatic, EOM grossly intact. No epistaxis. Full active ROM. CV: Extremities appear well perfused. Lungs: Equal chest rise bilaterally with no apparent respiratory distress Abdomen: Abdomen not abnormally distended or peritonitic MSK: No edema noted to exposed areas Skin: No acute lesions noted to exposed areas. Neuro: Moving all extremities equally. No gross focal deficit appreciated. MDM: 35-year-old with a history and exam as above. Vitals notable for tachycardia, tachypnea, otherwise within normal limits; I suspect these derangements are related to acute agitation in the setting of alcohol intoxication. Patient code purple on arrival to help facilitate transfer over to our bed and 4 point restraints. Shortly thereafter, remains yelling at staff, agitated, pulling in his restraints, subsequently given 5 mg droperidol. Anticipate period of observation here in the ED until he is clinically sober. Currently under arrest. Gorge Whiting MD ED Course as of 04/05/25 6760 Sun Apr 05, 2025 4088 ATTENDING: I personally saw the patient, performed goins elements of the visit, and supervised patient care with the eap clinician. MDM: 35 yr man with alcohol and benzodiazepine use disorders, now to the ED by EMS from sober house with suspected alcohol intoxication and benzodiazepine overdose. EMS report that he may have ingested 6 tablets of lorazepam. He was extremely agitated EN route, attempted to spit on EMS personnel and was physically threatening. He arrives in 4 point restraints and a spit tay under arrest by special police officer. History of recent events unable to be obtained dueto the patient's uncooperative state. [BW] 2238 Rechecked patient. He is able to ambulate from bed to wheelchair with minimal assistance. Makes eye contact, mentating okay. Does still appear somewhat intoxicated with the alcohol, however would not be a threat to himself at this time, is ambulating, and we will plan for discharge. [JUANY] ED Course User Index [BW] Ja Zeng MD [JUANY] Gorge Whiting MD Clinical Impressions as of 04/05/252239 Acute alcoholic intoxication without complication (HRC) documented in this encounter Plan of Treatment Not on file documented as of this encounter Visit Diagnoses Diagnosis Acute alcoholic intoxication without complication (HRC)- Primary * Triage Assessment Note - Sasha Don RN - 04/05/2025 5:36 PM CDT Chief complaint: agitated, ETOH Symptoms/background/relevant history (narrative): Pt brought in from sober living after reportedly consuming alcohol and 6 tabs of ativan (unknown dose). Pt combative with medics requiring a spit tay and 4 point restraints. Code red called upon arrival. Code purple called after medic report for safe transition to ER bed. Pt remains combative and verbally aggressive spitting, threatening to kill staff, attempting to grabstaff and items in the room despite being restrained. Pt in custody, [employer] at the bedside. documented in this encounter Administered Medications Inactive Administered Medications - up to 3 most recent administrations Medication Order MAR Action Action Date Dose Rate Site droPERidol (INAPSINE) 2.5 MG/ML injection - ADS Override Pull Starting on 04/05/25 at 1728, Until 04/05/25 at 1744, For 1 dose, [place]: deniset override droPERidol (INAPSINE) injection 5 mg 5 mg, Intramuscular, ONCE, On 04/05/25 at 1800, For 1 dose, Administer via slow IV push Given 04/05/2025 5:44 PM CDT 5 mg Right Quadriceps documented in this encounter Active and Recently Administered Medications Times are shown in CDT. Scheduled Medication Order 04/03/2025 04/04/2025 04/05/2025 droPERidol (INAPSINE) injection 5 mg (COMPLETED) 5 mg, Intramuscular, ONCE, On 04/05/25 at 1800, For 1 dose, Administer via slow IV push 1744 (Given - Provid er: Sasha Don RN) documented in this encounter Care Teams Daily Release And Dupe Printer Relationship Specialty Start Date End Date Found, No Pcp, [address] [place] [address] PCP - General 04/13/23 documented as of this encounter
[2025-04-08] VITALS (51 sets, daily range): BP systolic 103–124; BP diastolic 55–89; PULSE 85–131; RESP 5–19; TEMP 36.6; O2SAT 87–100
--- OUTSIDE RECORDS SUMMARY | 2025-04-08 06:51 | XMS_ITS | Clinical Summary ---
Author Organization [facility] Address [address] [address] Phone Care Team Providers Care Distributor Advertising Material Name Role Phone Elsewhere, Pcp Primary Care [...] 3-dose series) 2009 PERTUSSIS (Standing Order) 2009 Pneumococcal/PCV20 Vaccine: Pediatrics (2-5 yrs) and At-Risk Patients (6-49 yrs) (Standing Order) (1 of 2 - PCV) 2009 TETANUS (Standing Order) 2009 HPV Vaccine (Standing Order) Aged Out No longer eligible based on patient's age to complete this topic Insurance 1941 [address] [facility] Member Subscriber Plan / Payer (Ef fective 2024-Present) Name:Madeline Mckeno Relation to Subscriber:Self Name:Madeline Mckeon Payer ID:[id number] (NAIC) Group ID:Not on file Type:[employer] Address: [place] [id number] * Guarantor: MADELINE MCKEON Account Type Relation to Patient Date of Phone Billing Address [facility] [address] Advance Directives For more information, please contact: [phone] * Full Code (Latest Code Status on File) Date Activated Date Inactivated Comments 07/05/2019 8:58 PM 07/07/2019 7:07 PM Care Teams Distributor Advertising Material Relationship Specialty Start Date End Date Elsewhere, Pcp PCP - General 05/30/24
--- OUTSIDE RECORDS SUMMARY | 2025-04-08 06:51 | XMS_ITS | Clinical Summary ---
Author Organization [facility] Address [address] [place] [address] Care Team Providers Care Women'S Swim Coach Name Role Phone Clinic, No Primary Unavailable [...] Last Done Comments Hepatitis C Screening 1990 Lipid Screening 1990 Anxiety Screening (WM-2) 1991 Depression Assessment (PHQ-2) 1991 Pneumococcal Vaccine (1 of 2 - PCV) 2009 COVID-19 Vaccine (2023-2 5 season) 2024 Influenza Vaccine (Season Ended) 2025 08/01/2020, 08/07/2019 Adult Tetanus Booster 05/12/2026 05/12/2016 RSV Vaccines (1 - 1-dose 75+ series) 2065 Meningococcal B Vaccine Aged Out No l onger eligible based on patient's age to complete this topic Care Teams Women'S Swim Coach Relationship Specialty Start Date End Date Clinic, No Primary PCP - Primary Care Clinic 02/15/22 Doctor, No No ad PCP - General Radiology 02/15/22
--- OUTSIDE RECORDS SUMMARY | 2025-04-08 06:51 | XMS_ITS | Clinical Summary ---
Author Organization [place] Address Formerly [facility] [place] [address] Care Team Providers Care Finish Mill Operator Name Role Phone No Ref-Primary, Physician Primary [...] (05/08/2023): Added automatically from request for surgery [id number] Acute alcoholic intoxication in alcoholism, continuous drinking [...] updated by automated process. Provider to review Immunizations Immunization Administration Dates Next Due HepB 01/16/2002,09/05/2001,07/11/2001 Social [...] Date Recorded Do you have housing? (Eder g is defined as stable permanent housing and does not include staying outside in a car, in a tent, in an abandoned building, in an overnight long term, or couch-surfing.) No 07/13/2024 Are you worried [...] on file Legal Sex Male 4:14 AM REWINDER Gender Identity Not on file Sexual Orientation Not on file Last Filed Vital Signs Vital Sign Reading Time Taken Comments Blood Pressure 115/79 11/05/2024 3:05 PM REWINDER Pulse 106 11/05/2024 3:05 PM REWINDER Temperature 36.9 C (98.4 F) 11/05/2024 3:05 PM REWINDER Respiratory Rate 20 11/05/2024 6:00 PM REWINDER Oxygen Saturation 93% 11/05/2024 3:05 PM REWINDER Inhaled Oxygen Concentration - - Weight 121.6 kg (268 lb) 08/01/2024 11:47 PM CDT Height 182.9 cm (6') 08/01/2024 11:47 PM CDT Body Mass Index 36.35 08/01/2024 11:47 PM CDT Plan of Treatment Health Maintenance Due Date Last Done Comments ADVANCE CARE PLANNING 1990 ANNUAL REVIEW OF HM ORDERS 1990 DEPRESSION ACTION PLAN 1990 HIV SCREENING 2005 HEPATITIS C SCREENING 02/04/2008 PNEUMOCOCCAL VACCINE: PEDIATRICS (0 to 5 YEARS) AND AT-RISK PATIENTS (6 to 49 YEARS) (1 of 2 - PCV) 2009 PHQ-9 12/06/2012 06/05/2012 YEARLY PREVENTIVE VISIT 03/15/2024 03/15/20 23, 11/24/2019, 03/13/2007 COVID-19 VACCINE ( - season) 2024 02/13/2021 INFLUENZA VACCINE (Season Ended) 2025 08/01/2020, 08/07/2019, 08/07/2019 BMP 11/05/2025 11/05/2024, 12/06/2024, 08/04/2024, Additional history exists DTAP/TDAP/TD VACCINE (7 - Td or Tdap) 05/12/2026 05/12/2016, 06/06/1995, 02/28/1993, Additional history exists DIABETES SCREENING 11/05/2027 11/05/2024, 1 12/20/2023, 08/04/2024, Additional history exists ZOSTER VACCINE (1 of 2) 02/04/2040 HEPATITIS B VACCINE Completed 01/16/2002, 01/16/2002, 01/16/2002, Additional history exists HPV VACCINE Aged Out No longer eligi ble based on patient's age to complete this topic MENINGITIS VACCINE Aged Out No longer eligible based on patient's age to complete this topic Procedures Procedure Name Priority Date/Time Associated Diagnosis Comments COMPREHENSIVE METABOLIC PANEL STAT 11/05/2024 4:03 PM REWINDER from Last 3 Months or Most Recently Relevant to Health Maintenance Results * (ABNORMAL) Comprehensive metabolic panel (11/05/2024 4:03 PM REWINDER) Sodium 135 135 - 145 mmol/L 11/05/2024 4:52 PM [facility] Potassium 3.6 3.4 - 5.3 mmol/L 11/05/2024 4:52 PM [facility] Carbon Dioxide (CO2) 22 22 - 29 mmol/L 11/05/2024 4:52 PM [facility] Anion Gap 24(H) 7 - 15 mmol/L 11/05/2024 4:52 PM [facility] Urea Nitrogen 3.5(L) 6.0 - 20.0 mg/dL 11/05/2024 4:52 PM [facility] Creatinine 0.75 0.67 - 1.17 mg/dL 11/05/2024 4:52 PM [facility] GFR Estimate >90 >60 mL/min/1.7 3m2 11/05/2024 4:52 PM [facility] Comment:eGFR calculated usin g 2020 CKD-EPI equation. Calcium 8.9 8.8 - 10.4 mg/dL 11/05/2024 4:52 PM [facility] Comment:Reference intervals for this test were updated on 05/06/2024 to reflect our healthy population more accurately. There may be differences in the flagging of prior results with similar values performed with this method. Those prior results can be interpreted in the context of the updated reference intervals. Chloride 89(L) 98 - 107 mmol/L 11/05/2024 4:52 PM [facility] Glucose 297(H) 70 - 99 mg/dL 11/05/2024 4:52 PM [facility] Alkaline Phosphatase 129 40 - 150 U/L 11/05/2024 4:52 PM [facility] AST 11/05/2024 4:52 PM [facility] Comment:Unsatisfactory speci men - hemolyzed ALT 46 0 - 70 U/L 11/05/2024 4:52 PM [facility] Protein Total 7.5 6.4 - 8.3 g/dL 11/05/2024 4:52 PM RE[facility] LABOR[facility]ORY Albumin 4.3 3.5 - 5.2 g/dL 11/05/2024 4:52 PM RE[facility] LABOR[facility] Bilirubin Total 0.6 <=1.2 mg/dL 11/05/2024 4:52 PM RE[facility] LABORATORY Blood BLOOD SPECIMEN / Unknown Venipuncture / Unknown 11/05/2024 4:03 PM REWINDER 11/05/2024 4:11 PM REWINDER us Da Hensley MD LAB - BLOOD ORDERABLES Final Result LABORATORY [facility] [address], [address] [place] [address], [facility] [phone] from Last 3 Months or Most Recently Relevant to Health Maintenance [facility] [address] [place] [address] [employer] [address] [place] [address] [employer] Advance Directives For more information, please contact: [phone] * Full Code (Latest Code Status on File) Date Activated Date Inactivated Comments 07/13/2024 10:05 PM 07/15/2024 1:46 PM All basic a nd advanced life-sustaining interventions are performed as appropriate Question Answer Comments Code status determined by: Discussion with jefry cuevas/ legal decision maker * Full Code Date Activated Date Inactivated Comments 04/05/2021 11:56 AM 04/06/2021 4:04 PM All basic a nd advanced life-sustaining interventions are performed as appropriate Question Answer Comments Code status determined by: Discussion with jefry nt/ legal decision maker Care Teams Finish Mill Operator Relationship Specialty Start Date End Date No Ref-Primary, Physician PCP - General 09/06/20
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
--- OUTSIDE RECORDS SUMMARY | 2025-04-08 06:51 | XMS_ITS | Clinical Summary ---
Author Organization [facility] Address [address] [place] [address] Care Team Providers Care Consumer Electronic Retail Specialist Name Role Phone Found, No Pcp MD Primary Care Provider Unavailab le Source Comments You are receiving this document as you are listed as the primary care provider,follow-up provider, or the patient has been referred to you for consultation.This is in compliance with the Medicare and[facility] EHR Incentive Program,which states Providers who transition their patient to another setting of careor provider of care or refers their patient to another provider of care shouldprovide summary care record for each transition of care or referral. [facility] Allergies No known active allergies Medications * [...] FOR THIS PATIENT Member Name: MADELINE MCKEON [facility] ID: [id number] PMI: : 1990 Restricted Member Restriction Begin Date: 07/23/2022 Restriction End Date: 07/23/2025 Member is Restricted to accessing the following providers only: PCP: KATIE COSME PCC: [facility] UC: [facility]- Hospital: [facility] Pharmacy: [id number] Pharmacy Address: [address] [place] [address] Pharmacy RRP Brim Molder, [place]ita [place], , [id number] Referrals are not required from the designated PCP for the following types of care regardless of plan type: Mental and chemical health counseling; Physical, occupational, and speech therapies; career placement services counselor and acupuncture; Routine lab work at designated [...] for OBGYN and Psychiatry. Contact designated P Brim Molder for questions or further information. ALL CONTROLLED MEDICATIONS FOR OUTPATIENT USE MUST BE PRESCRIBED BY (provider name) - For EXCEPTIONS AND/OR REFERRALS - CONTACT P PILLOWCASE TURNER. Benzodiazepine dependence 04/13/2023 Alcohol abuse 04/09/2022 Alcohol-induced acute pancre atitis without infection or necrosis 07/20/2020 Resolved Problems Problem Noted Date Diagnosed Date Resolved Date Alcohol dependence with with drawal, uncomplicated 04/13/2023 03/30/2024 Encounters Date Type Department Care Team Description 04/05/2025 5:24 PM CDT - 04/05/2025 10:50 PM CDT [facility] [address] [place] [id number] Ja Zeng MD Acute alcoholic intoxication without complication (HRC) (Primary Dx) Discharge Disposition: Home from Last 3 Months [...] Pulse 108 04/05/2025 10:15 PM CDT Temperature 37 C (98.6 F) 11/05/2024 10:10 PM [employer]ER Respiratory Rate 20 04/05/2025 9:45 PM CDT Oxygen Saturation 96% 04/05/2025 10: 30 PM CDT Inhaled Oxygen Concentration - - Weight 120.1 kg (264 lb 11.2 oz) 04/14/2023 2:05 AM CDT Height 182.9 cm (6') 04/14/2023 2:05 AM CDT Body Mass Index 35.9 04/14/2023 2:05 AM CDT Plan of Treatment Health Maintenance Due Date Last Done Comments Hep C Screening (Preventive Services) 1990 HIV Screening (Preventive Services) 2006 Adult Preventive Visit 02/04/2008 HepB Vaccine (1) 2009 Pneumococcal Vaccine (1 of 2 - PCV) 2009 COVID-19 Vaccine (2 - season) 2024 02/13/2021 Cholesterol 2025 Influenza Vaccine (Season Ended) 2025 08/01/2020, 08/07/2019 DTaP/Tdap/Td Vaccine (7 - Tdap) 05/12/2026 05/12/2016, 06/06/1995, 02/28/1993, Additional history exists Zoster/Shingles Vaccine (1 of 2) 02/04/2040 Hib Vaccine Completed 05/21/1991, 02/12/1991 IPV (Polio) Vaccine Completed 06/06/1995, 02/28/1993, 1990, Additional history exists HPV Vaccine Aged Out No longer eligi ble based on patient's age to complete this topic HepA Vaccine Aged Out No longer eligi ble based on patient's age to complete this topic MCV4 Vaccine Aged Out No longer eligi ble based on patient's age to complete this topic Meningococcal B Vaccine Aged Out No l onger eligible based on patient's age to complete this topic Insurance CARE PMAP Advance Directives * Full Code (Latest Code Status on File) Date Activated Date Inactivated Comments 04/13/2023 11:04 PM 04/15/2023 1:09 PM * Full Code Date Activated Date Inactivated Comments 07/17/2020 6:15 PM 07/21/2020 4:23 PM Care Teams Consumer Electronic Retail Specialist Relationship Specialty Start Date End Date Found, No [facility], [address] [facility] [place] [address] PCP - General 04/13/23
--- OUTSIDE RECORDS SUMMARY | 2025-04-08 06:51 | XMS_ITS | Referral Summary ---
Author Organization [facility] Address [address] [place] [address] Care Team Providers Care Pattern Designer Name Role Phone Clinic, No Primary Unavailable [...] of Treatment Not on file Care Teams Pattern Designer Relationship Specialty Start Date End Date Clinic, No Primary PCP - Primary Care Clinic 02/15/22 Doctor, No No ad PCP - General Radiology 02/15/22
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
[2025-04-08] MEDS: HALOPERIDOL 5 MG/ML INJ 10 MG IV (07:32)
[2025-04-08] MEDS: LORazepam 2 MG/ML inj 1 MG IVP (07:33)
[2025-04-08 08:21] LABS: Lactate* 2.8 mmol/L (0.5-1.9); PCO2 VBG 49 mmHG (40-50); PO2 VBG 75.1 mmHG (25-47)
[2025-04-08 08:22] LABS: Basophils Absolute Auto 0.01 K/uL (0.00-0.30); Basophils Percent Auto 0.2 % (0.0-3.0); Eosinophils Absolute Auto 0.06 K/uL (0.00-0.50); Eosinophils Percent Auto 1.1 % (0.0-7.0); HCO3 VBG 27 mmol/L (21-28); Hematocrit 45.7 % (37.0-53.0); Hemoglobin* 15.8 gm/dL (13.5-17.5); Immature Granulocytes Abs Auto 0.02 K/uL (0.00-0.30); Immature Granulocytes Pct Auto 0.4 %; Lymphocytes Absolute Auto 1.57 K/uL (0.90-2.90); Lymphocytes Percent Auto 28.9 % (20-44); Mean Corpuscular HGB Conc 35 gm/dL (32-36); Mean Corpuscular Hemoglobin 31 pg (26-34); Mean Corpuscular Volume 91 fL (80-100); Neutrophils Percent Auto 64.4 % (42.0-72.0); Platelet Count* 158 K/uL (140-440); RDW Coefficient of Variation % 12.5 % (11.5-15.5); Red Blood Count 5.03 m/uL (4.30-5.90); White Blood Count* 5.43 K/uL (4.50-11.00)
[2025-04-08 08:32] LABS: Slide Review Reflex No
[2025-04-08 08:44] LABS: Albumin* 4.8 g/dL (3.3-5.0); Chloride* 109 mmol/L (96-114); Sodium* 149 mmol/L (135-149)
[2025-04-08 08:45] LABS: Potassium* 4.4 mmol/L (3.6-5.1)
[2025-04-08 08:46] LABS: Ammonia* 16.6 umol/L (13.1-30.0)
[2025-04-08 08:47] LABS: Alanine Aminotransferase* 35 U/L (4-50); Alkaline Phosphatase* 88 U/L (40-150); Aspartate Amino Transferase* 56 U/L (12-35); Bilirubin Total* 0.6 mg/dL (0.1-1.5)
[2025-04-08 08:48] LABS: Anion Gap 15 mEq/L (7-15); Carbon Dioxide* 25 mmol/L (20-32); Creatine Kinase* 374 U/L (54-186); Glucose* 118 mg/dL (60-115); Total Protein* 7.8 g/dL (6.0-8.3)
[2025-04-08 08:53] LABS: Blood Urea Nitrogen* 9 mg/dL (5-24); Creatinine* 0.8 mg/dL (0.5-1.5); Estimated Glomerular Filt Rate 118 ml/min
[2025-04-08] MEDS: 0.9 % SODIUM CHLORIDE 1000 ml 1,000 ML IV (08:54)
[2025-04-08 08:56] LABS: C Reactive Protein* < 0.5 mg/dL (0.5-1.0); Ethanol* 0.29 % (0.01-0.03)
[2025-04-08 09:01] LABS: Troponin I* < 0.01 ng/mL (0.01-0.04)
[2025-04-08] MEDS: LACTATED RINGERS 1000 ML 1,000 ML IV (11:13)
== END 2025-04-08 15:22 | disposition home or self-care (01) ==
PROVIDERS: Family Medicine; Emergency Provider Family Medicine
DX: F10.129 Alcohol abuse with intoxication, unspecified (principal); S02.2XXA Fracture of nasal bones, initial encounter for closed fracture
CPT/HCPCS: 36415; 70450; 70486; 71045; 80053; 80306; 81003; 82077; 82140; 82550; 82803; 83605; 84484; 85025; 86140; 93005; 94761; 96374; 96375; 99285; J1630; J2060; J7030; J7120

== ENCOUNTER 2025-04-10 19:38 | Outpatient (CLI) | payer MEDICAID, SELFPAY ==
--- OUTSIDE RECORDS SUMMARY | 2025-04-05 17:24 | XMS_ITS | Encounter Summary ---
Author Organization [facility] Address [address] [facility] [place] [address] Care Team Providers Care Manager Small Business Name Role Phone Found, No Pcp MD Primary Care Provider Unavailab le Reason for Visit * Reason Comments AGITATION Encounter Details Date Type Department Care Team (Late st Contact Info) Description 04/05/2025 5:24 PM CDT - 04/05/2025 10:50 PM CDT Emergency [facility] Emergency Dept [address] [place] [id number] Ja Zeng MD [address] [place] [id number] Acute alcoholic intoxication without complication (HRC) (Primary [...] Rodriguez RN - 04/05/2025 10:49 PM CDT [facility] ED Nursing Discharge Note Arrival Information: Patient arrived: Ambulance Patient escorted by: EMS/Ambulance Discharge Information: Patient Accompanied By: Police Transport Mode: Wheelchair, Police Discharge Disposition: Correctional Facility Facility Name: [facility] Confirmed physical address of discharge location with (enter name): police, and aid at half-way Verbal report given to (enter name): police, and aid at half-way Callback Number: [phone] Discharge Instructions given and explained to patient: Follow up appointments reviewed LDA in place: Patient/family/legal care support representative in agreement with discharge plan? Yes Does patient require hand-off or assistance with discharge plan: Yes: Hand off of ride/discharge plan given to: police and half-way staff Belongings and medication returned to patient [...] wrong, I don't need to go to half-way. Pt able to stand and take steps into a wheelchair. Pt verbally aggressive with police. Pt taken to half-way by police officers in wheelchair. * Karo [...] Whiting MD - 04/05/2025 5:28 PM CDT [facility] Emergency Medicine Visit Note Chief Complaint: No [...] Whiting MD ED Course as of 04/05/25 9510 Sun Apr 05, 2025 7095 ATTENDING: I personally saw the patient, performed goins elements of the visit, and supervised patient care with the primary class teacher. MDM: 35 yr man with alcohol and [...] and a spit tay under arrest by police sergeant precinct. History of recent events unable to be [...] RN) documented in this encounter Care Teams Manager Small Business Relationship Specialty Start Date End Date Found, No Pcp, [address] [place] [address] PCP - General 04/13/23 documented as of this encounter
--- OUTSIDE RECORDS SUMMARY | 2025-04-14 00:19 | XMS_ITS | Clinical Summary ---
Author Organization [facility] Address [facility] 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 Gender Identity Not on file Sexual Orientation Not on file Last Filed Vital Signs Vital Sign Reading Time Taken Comments Blood Pressure 115/79 11/05/2024 3:05 PM CABLE TELEVISION TECHNICIAN Pulse 106 11/05/2024 3:05 PM CABLE TELEVISION TECHNICIAN Temperature 36.9 C (98.4 F) 11/05/2024 3:05 PM CABLE TELEVISION TECHNICIAN Respiratory Rate 20 11/05/2024 6:00 PM CABLE TELEVISION TECHNICIAN Oxygen Saturation 93% 11/05/2024 3:05 PM CABLE TELEVISION TECHNICIAN Inhaled Oxygen Concentration - - Weight 121.6 [...] COMPREHENSIVE METABOLIC PANEL STAT 11/05/2024 4:03 PM CABLE TELEVISION TECHNICIAN from Last 3 Months or Most Recently Relevant to Health Maintenance Results * (ABNORMAL) Comprehensive metabolic panel (11/05/2024 4:03 PM CABLE TELEVISION TECHNICIAN) Sodium 135 135 - 145 mmol/L 11/05/2024 4:52 PM [facility] Potassium 3.6 3.4 - 5.3 mmol/L 11/05/2024 4:52 PM [facility] Carbon Dioxide (CO2) 22 22 - 29 mmol/L 11/05/2024 4:52 PM [facility] Anion Gap 24(H) 7 - 15 mmol/L 11/05/2024 4:52 PM [facility] Urea Nitrogen 3.5(L) 6.0 - 20.0 mg/dL 11/05/2024 4:52 PM [facility] Creatinine 0.75 0.67 - 1.17 mg/dL 11/05/2024 4:52 PM [facility] GFR Estimate >90 >60 mL/min/1.7 3m2 11/05/2024 4:52 PM [facility] Comment:eGFR calculated usin g 2020 CKD-EPI equation. Calcium 8.9 8.8 - 10.4 mg/dL 11/05/2024 4:52 PM [facility] Comment:Reference intervals for this test were updated on 05/06/2024 to reflect our healthy population more accurately. There may be differences in the flagging of prior results with similar values performed with this method. Those prior results can be interpreted in the context of the updated reference intervals. Chloride 89(L) 98 - 107 mmol/L 11/05/2024 4:52 PM [facility] Glucose 297(H) 70 - 99 mg/dL 11/05/2024 4:52 PM [facility] Alkaline Phosphatase 129 40 - 150 U/L 11/05/2024 4:52 PM [facility] AST 11/05/2024 4:52 PM [facility] Comment:Unsatisfactory speci men - hemolyzed ALT 46 0 - 70 U/L 11/05/2024 4:52 PM [facility] Protein Total 7.5 6.4 - 8.3 g/dL 11/05/2024 4:52 PM CABLE TELEVISION TECHNICIAN LABORATORY Albumin 4.3 3.5 - 5.2 g/dL 11/05/2024 4:52 PM CABLE TELEVISION TECHNICIAN LABORATORY Bilirubin Total 0.6 <=1.2 mg/dL 11/05/2024 4:52 PM CABLE TELEVISION TECHNICIAN LABORATORY Blood BLOOD SPECIMEN / Unknown Venipuncture / Unknown 11/05/2024 4:03 PM CABLE TELEVISION TECHNICIAN 11/05/2024 4:11 PM CABLE TELEVISION TECHNICIAN us Da Hensley MD LAB - BLOOD ORDERABLES Final Result LABORATORY [facility] [address], [address] [place] [address], [facility] [phone] from Last 3 Months or Most Recently Relevant to Health Maintenance [id number] [place] [id number] [employer] [address] [place] [address] [employer] Advance Directives For more information, please contact: [phone] * Full Code (Latest Code Status on [...] jefry nt/ legal decision maker Care Teams Casing Crew Relationship Specialty Start Date End Date No Ref-Primary, Physician PCP - General 09/06/20
--- OUTSIDE RECORDS SUMMARY | 2025-04-14 00:19 | XMS_ITS | Clinical Summary ---
Author Organization [facility] Address [address] [place] [address] Care Team Providers Care Sat Tutor Name Role Phone Primitivo Apple MD Primary [...] Type Department Care Team Description 02/10/2025 Telephone [facility] [address] [place] [address] Primitivo Apple MD Form (Network [...] 1 Dio graduated from treatment. Now in residential for meth. 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 [place] [address] [place] * Guarantor: [facility] Account Type Relation to Patient Date of Phone Billing Address [facility] Employer [address] [place] [address] Advance Directives * Full Code (Latest Code [...] Code Status Discussion: Reviewed Preferences Care Teams Sat Tutor Relationship Specialty [place] [address] [place] [address] PCP - General Family Practice 01/29/24
--- OUTSIDE RECORDS SUMMARY | 2025-04-14 00:19 | XMS_ITS | Clinical Summary ---
Author Organization [employer] Address [address], [place] [address] Care Team Providers Care Sourcing Associate Name Role Phone Found, No Pcp MD Primary Care Provider Unavailab le Source Comments You are receiving this document as you are listed as the primary care provider,follow-up provider, or the patient has been referred to you for consultation.This is in compliance with the Medicare and[facility] EHR Incentive Program,which states Providers who transition their patient to another setting of careor provider of care or refers their patient to another provider of care shouldprovide summary care record for each transition of care or referral. [employer] Allergies No known active allergies Medications * [...] FOR THIS PATIENT Member Name: MADELINE MCKEON [employer] ID: [id number] PMI: : 1990 Restricted Member Restriction Begin Date: 07/23/2022 Restriction End Date: 07/23/2025 Member is Restricted to accessing the following providers only: PCP: KATIE COSME PCC: [facility] PCC UC: [facility]- Hospital: [facility] Pharmacy: [id number] Pharmacy Address: [address] [place] [address] Pharmacy RRP [facility], Annita Vika, , [id number] Referrals are not required from the designated PCP for the following types of care regardless of plan type: Mental and chemical health counseling; Physical, occupational, and speech therapies; career technical supervisor and acupuncture; Routine lab work at designated [...] for OBGYN and Psychiatry. Contact designated P [facility] for questions or further information. ALL CONTROLLED MEDICATIONS FOR OUTPATIENT USE MUST BE PRESCRIBED BY (provider name) - For EXCEPTIONS AND/OR REFERRALS - CONTACT P HOME SECURITY PROFESSIONAL. 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
--- OUTSIDE RECORDS SUMMARY | 2025-04-14 00:19 | XMS_ITS | Clinical Summary ---
Author Organization [facility] Address [address] [address] Phone Care Team Providers Care Blueberry Grower Name Role Phone Elsewhere, Pcp Primary Care [...] age to complete this topic Insurance 1941 [address] [facility] Member Subscriber Plan / Payer (Ef fective 2024-Present) Name:Madeline Mckeon Relation to Subscriber:Self Name:Madeline Mckeon Payer ID:[id number] (NAIC) Group ID:Not on file Type:[employer] Address: [place] [id number] * Guarantor: MADELINE MCKEON Account Type Relation to Patient Date of Phone Billing Address [facility] [address] Advance Directives For more information, please contact: [phone] * Full Code (Latest Code Status on File) Date Activated Date Inactivated Comments 07/05/2019 8:58 PM 07/07/2019 7:07 PM Care Teams Blueberry Grower Relationship Specialty Start Date End Date Elsewhere, Pcp PCP - General 05/30/24
--- OUTSIDE RECORDS SUMMARY | 2025-04-14 00:19 | XMS_ITS | Clinical Summary ---
Author Organization [facility] Address [address] [place] [id number] Care Team Providers Care Lead Blender Name Role Phone Clinic, No Primary Unavailable [...] age to complete this topic Care Teams Lead Blender Relationship Specialty Start Date End Date Clinic, No Primary PCP - [facility] 02/15/22 Doctor, No No ad PCP - General Radiology 02/15/22
--- OUTSIDE RECORDS SUMMARY | 2025-04-14 00:19 | XMS_ITS | Referral Summary ---
Author Organization [facility] Address [address] [place] [id number] Care Team Providers Care Director Of Restaurants Name Role Phone Clinic, No Primary Unavailable [...] of Treatment Not on file Care Teams Director Of Restaurants Relationship Specialty Start Date End Date Clinic, No Primary PCP - Primary Care Clinic 02/15/22 Doctor, No No ad PCP - General Radiology 02/15/22
== END 2025-04-10 19:39 | disposition home or self-care (01) ==
LOC: AMB 04-13 10:04
PROVIDERS: Visit Provider Family Medicine
DX: F10.129 Alcohol abuse with intoxication, unspecified (principal)
CPT/HCPCS: A0425; A0427

== ENCOUNTER 2025-04-10 20:16 | Emergency (ER) | payer MEDICAID, SELFPAY ==
[2025-04-10] VITALS (20 sets, daily range): BP systolic 122–152; BP diastolic 74–95; PULSE 120–147; RESP 9–27; TEMP 37; O2SAT 90–98; BMI 29.5
--- NOTE | 2025-04-10 20:19 | CRLHL7_ITS ---
For Patients: As a result of the Cures Act, medical imaging exams and procedure reports are released immediately into your electronic medical record. You may view this report before your referring provider. If you have questions, please contact your health care provider. Indication: Fall. Technique: Noncontrast CT images of the cervical spine. Comparison: None. Findings: Reversal of the cervical lordosis. Mild leftward cervical curvature. Vertebral body heights are maintained. No acute fracture, spondylolisthesis, or traumatic subluxation. No spinal canal or neural foraminal stenosis. No concerning opacities in the lung apices. Impression: No acute fracture or traumatic subluxation. Please note that all CT scans at this facility use dose modulation, iterative reconstruction, and/or weight-based dosing when appropriate to reduce radiation dose to as low as reasonably achievable. Dictated by Michael Almazan MD @ 04/10/2025 8:51:19 PM (Electronically Signed)
--- NOTE | 2025-04-10 20:19 | CRLHL7_ITS ---
For Patients: As a result of the Century Cures Act, medical imaging exams and procedure reports are released immediately into your electronic medical record. You may view this report before your referring provider. If you have questions, please contact your health care provider. Indication: Fall. Technique: CT brain: Noncontrast CT images of the brain. CT facial bones: Noncontrast CT images of the facial bones. Comparison: CT brain and CT facial bones 04/08/2025. Findings: CT brain: Minimal diffuse cerebral volume loss. No mass effect or midline shift. Morton-white differentiation is maintained. No acute intracranial hemorrhage or pathologic extra-axial fluid collection. No calvarial fracture. CT facial bones: Laterally displaced, mildly comminuted fracture of the right nasal bones. Soft tissue swelling involving the nasal folds. Soft tissue stranding and swelling in the left periorbital and left premaxillary region. Globes are symmetric. No retrobulbar hematoma. Paranasal sinuses are well aerated. Mastoid air cells are clear. Impression: 1. No acute intracranial hemorrhage or mass effect. 2. Laterally displaced, mildly comminuted fracture of the right nasal bones. Soft tissue swelling involving the nasal folds. Soft tissue stranding and swelling in the left periorbital and left premaxillary region. Please note that all CT scans at this facility use dose modulation, iterative reconstruction, and/or weight-based dosing when appropriate to reduce radiation dose to as low as reasonably achievable. Dictated by Michael Almazan MD @ 04/10/2025 8:48:57 PM (Electronically Signed)
--- NOTE | 2025-04-10 20:20 | CRLHL7_ITS ---
For Patients: As a result of the Cures Act, medical imaging exams and procedure reports are released immediately into your electronic medical record. You may view this report before your referring provider. If you have questions, please contact your health care provider. Indication: Fall, altered, fell downstairs. Technique: Single AP view of the chest. Comparison: 04/08/2025. Findings: Low lung volumes with bronchovascular crowding. No acute focal consolidation. The cardiomediastinal silhouette is unremarkable. No pleural effusion or pneumothorax. The osseous structures and soft tissues are unremarkable for age. Impression: No evidence of an acute pulmonary process Dictated by Bernabe Benedict MD @ 04/10/2025 9:13:59 PM (Electronically Signed)
--- NOTE | 2025-04-10 20:28 | ED.GENADULT ---
HPI - General Adult General Date Seen: 04/10/25 Chief complaint: Major Trauma Stated complaint: fall Time Seen by Provider: 04/10/25 20:21 Source: patient, EMS, RN notes reviewed and old records reviewed Mode of arrival: EMS Limitations: altered mental status History of Present Illness HPI narrative: This 35-year-old male was seen on arrival, was brought in by EMS as a trauma team activation. Patient had fallen down 2nd floor stairs and was found down. He appeared to be intoxicated, altered mental status, trauma to nose and possibly mouth. EMS was concerned about close head injury from a fall. They noted he was mumbling and incoherent. They did have him in a C-collar but he was attempting to move, had do continually be redirected to hold still. GCS per staff was reported to be 10 on arrival. On closer examination, I would feel at sometimes is GCS was actually 13, just off for speech being incoherent at times. He did obey commands for me, would wiggle is feet, was redirectable to lay his head back down. He had bruising around his left periorbital area which was reportedly old, 1 of the nurses states he was just seen, indeed later review of his chart shows that he was here on 04/08 with a fall. He had a right nasal fracture. Blood sugar is 236 by EMS. He had multiple bruises all over his body. After brief evaluation Deeming this patient to be stable to go to CT, went to CT and then was evaluated immediately upon return to the department. My initial survey was a 35-year-old male breathing independently, no active bleeding. Pupils were equal round reactive, sclera clear, conjugate gaze. He had left periorbital bruising, dried blood on his face, nose had blood in both nares, nose with swollen and ecchymotic. C-collar on, could be inhibiting some of his attempts at talking, did understand some of his words. Did not appreciate any definitive oral bleeding. CV regular rate and rhythm, no murmur, normal S1-S2. Lungs are clear, good air entry, no wheezing or crackles. Breathing independently. Abdomen is soft, nondistended. At 1 point he complained of pain when I palpated his abdomen but really examination reveals no pain, no organomegaly, no rebound or guarding. He has old resolving bruising over both knees, no knee joint swelling. Would move his feet when I am asked. Can move his arms and hands. Related Data Home Medications ?Medication ?Instructions ?Recorded ?Confirmed clonidine HCl 0.2 mg tablet 0.2 mg PO QPM PRN 04/08/25 04/10/25 dextroamphetamine-amphetamine 20 1 tab PO DAILY 04/08/25 04/10/25 mg tablet gabapentin 600 mg tablet 600 mg PO QID 04/08/25 04/10/25 lorazepam 1 mg tablet 1 mg PO 3XD PRN 04/08/25 04/10/25 Allergies Allergy/AdvReac Type Severity Reaction Status Date / Time No Known Drug Allergies Allergy Verified 04/10/25 21:13 Review of Systems Status of ROS: Reports: unobtainable due to mental status Exam Const: Vital Signs, click to edit/add: Vital Signs - 24 hr 04/11/25 03:00 04/11/25 05:41 Temperature 98.2 F 98.2 F Pulse Rate 95 Pulse Rate [Pulse Oximeter] 95 Respiratory Rate 18 18 Blood Pressure 155/74 H Blood Pressure [Le ft Upper Arm] 129/85 Pulse Oximetry 93 93 Oxygen Delivery Me thod Room Air Oxygen Flow Rate 2 See above under HPI. Documenting provider has reviewed patient's vital signs: yes Course Course ED Course: Will await his CT images of his head, face and neck. Will get a portable chest x-ray. Will be getting full complement of labs. As soon as I am able, will do a fast exam and consider further imaging based on labs, fast exam or change in clinical status. He obviously is intoxicated it which certainly is part of his altered mentation. Believe his blood alcohol is going to be significantly elevated. Reevaluation(s) Time of Reevaluation #1: 21:00 Reevaluation #1: Nursing staff did have me come back to the room, ready to logroll patient, back is examined, no traumatic change, spine nontender. Time of Reevaluation #2: 22:24 Reevaluation #2: Patient was given Zyprexa, had been demanding pain medicine, wanting Dilaudid, oxycodone. With a blood alcohol level of 0.37 and his presentation, did not feel that this was indicated nor safe for him. He eventually did start throwing things. Did give him 5 mg IV Zyprexa. Time of Reevaluation #3: 22:42 Reevaluation #3: Patient did not actually get the Zyprexa, settle down. Went back in to re-evaluate him, nose is significantly swollen, there is some displacement that is visible. He has dried blood at the nares, we will be trying to clean this out so I can get a better look at the septum. He did take Tylenol. Oropharynx reveals some dried blood on his lips, dentition seem to be in good repair, tongue normal, see no traumatic change. Additional Reevaluation(s): 12:48 a.m.: Patient is sleeping, did awaken him. He has had his nose clean, still lot of dried blood in there but do not appreciate septal hematoma from what I can see. Did look at the CT images as well. He refused the IV Toradol earlier, get upset with nursing when it was not tramadol. He did readily fall back to sleep. Will be signing him over to the night hospitalist. 1:18 a.m.: Patient is at his door requesting close, wants to leave. He does not have a ride. He is obviously clinically sobering up. He is complaining of pain in his nose. At this time I do feel more comfortable giving him pain management. Will give him 5 mg oral oxycodone as he will be under our supervision. He does agree to stay and sleep until he can have a ride in the morning or find someone to pick him up. He will be supervised and on pulse oximetry to make sure he is safe while on the narcotic. Vital Signs Vital signs: Initial Vital Signs Pulse Oximetry 96 04/10/25 20:19 Vital Signs Pulse Oximetry 96 04/10/25 20:19 Temperature 98.2 F 04/11/25 05:41 Pulse Rate 95 04/11/25 05:41 Respiratory Rate 18 04/11/25 05:41 Blood Pressure 129/85 04/11/25 05:41 Pulse Oximetry 93 04/11/25 05:41 Oxygen Delivery Method Room Air 04/11/25 05:41 Oxygen Flow Rate 2 04/11/25 05:41 Medications Administered Medications: Discontinued Medications Generic Name Dose Route Start Last Admin Trade Name Freq PRN Reason Stop Dose Admin Acetaminophen 1,000 mg 04/10/25 21:23 04/10/25 21:32 Acetaminophen 500 Mg Tablet PO 04/10/25 21:24 1,000 mg ONCE ONE Administration Oxycodone HCl 5 mg 04/11/25 01:20 04/11/25 01:24 Oxycodone 5 Mg Tablet PO 04/11/25 01:21 5 mg ONCE ONE Administration Medical Decision Making Lab Data Labs: Lab Results 04/10/25 04/10/25 Range/Units 20:30 Unknown WBC 6.80 (4.50-11.00) K/uL RBC 4.83 (4.30-5.90) m/uL Hgb 15.2 (13.5-17.5) gm/dL Hct 43.3 (37.0-53.0) % MCV 90 (80-100) fL MCH 32 (26-34) pg MCHC 35 (32-36) gm/dL RDW Coeff of Vicente 12.4 (11.5-15.5) % Plt Count 191 (140-440) K/uL Neut % (Auto) 62.2 (42.0-72.0) % Lymph % (Auto) 30.3 (20-44) % Preble % (Auto) 6.3 (0.0-11.0) % Eos % (Auto) 0.7 (0.0-7.0) % Baso % (Auto) 0.1 (0.0-3.0) % Neut # (Auto) 4.22 (1.7-7.0) K/uL Lymph # (Auto) 2.06 (0.90-2.90) K/uL Preble # (Auto) 0.40 (0.00-0.90) K/UL Eos # (Auto) 0.05 (0.00-0.50) K/uL Baso # (Auto) 0.01 (0.00-0.30) K/uL Abs Immat Gran (auto) 0.03 (0.00-0.30) K/uL Imm/Tot Granulo (auto) 0.4 % Sodium 147 (135-149) mmol/L Potassium 3.5 L (3.6-5.1) mmol/L Chloride 106 (96-114) mmol/L Carbon Dioxide 25 (20-32) mmol/L Anion Gap 16 H (7-15) mEq/L BUN 3 L (5-24) mg/dL Creatinine 0.8 (0.5-1.5) mg/dL Estimated GFR 118 ml/min Glucose 162 H (60-115) mg/dL Lactate 3.1 H (0.5-1.9) mmol/L Calcium 9.0 (8.4-10.6) mg/dL Total Bilirubin 0.6 (0.1-1.5) mg/dL AST 49 H (12-35) U/L ALT 32 (4-50) U/L Alkaline Phosphatase 85 (40-150) U/L Total Protein 7.6 (6.0-8.3) g/dL Albumin 4.7 (3.3-5.0) g/dL Urine Color Yellow (Yellow) Urine Appearance Clear (Clear) Urine pH 7.0 (5.0-8.5) Ur Specific [place] 1.010 (1.000-1.030) Urine Protein Trace A (Negative) Urine Glucose (UA) Negative (Negative) Urine Ketones Negative (Negative) Urine Blood 2+ A (Negative) Urine Nitrite Negative (Negative) Urine Bilirubin Negative (Negative) Urine Urobilinogen 0.2 (0.2-1.0) Ur Leukocyte Esterase Negative (Negative) Urine RBC 2-5 A (0-2) Urine WBC 2-5 (0-5) Ur Squamous Epith Cells Few (None-Few) Urine Bacteria None (None) Urine Opiates Screen Negative (Negative) Ur Oxycodone Screen Negative (Negative) Urine Methadone Screen Negative (Negative) Ur Barbiturates Screen Negative (Negative) U Tricyclic Antidepress Negative (Negative) Ur Phencyclidine Scrn Negative (Negative) Ur Amphetamines Screen POSITIVE A (Negative) U Methamphetamines Scrn Negative (Negative) U Benzodiazepines Scrn POSITIVE A (Negative) Urine Cocaine Screen Negative (Negative) U Marijuana (THC) Screen Negative (Negative) Ur Drug Screen Comment See Note Ethyl Alcohol 0.37 H* (0.01-0.03) % Imaging Data CT facial bones: Attestation: I have reviewed the pertinent imaging results. Radiologist's impression: Patient: MADELINE PERSAUD Facility:?[facility] Patient ID:?[id number] Site Patient ID:?[id number]. Site :?1990 Study:?CT-Head CODE TRAUMA WITHOUT-04/10/2025 8:34:09 PM Ordering Physician:Addison Garcia Final Report: Indication: Fall. Technique: CT brain: Noncontrast CT images of the brain. CT facial bones: Noncontrast CT images of the facial bones. Comparison: CT brain and CT facial bones 04/08/2025. Findings: CT brain: Minimal diffuse cerebral volume loss. No mass effect or midline shift. Morton-white differentiation is maintained. No acute intracranial hemorrhage or pathologic extra-axial fluid collection. No calvarial fracture. CT facial bones: Laterally displaced, mildly comminuted fracture of the right nasal bones. Soft tissue swelling involving the nasal folds. Soft tissue stranding and swelling in the left periorbital and left premaxillary region. Globes are symmetric. No retrobulbar hematoma. Paranasal sinuses are well aerated. Mastoid air cells are clear. Impression: 1. No acute intracranial hemorrhage or mass effect. 2. Laterally displaced, mildly comminuted fracture of the right nasal bones. Soft tissue swelling involving the nasal folds. Soft tissue stranding and swelling in the left periorbital and left premaxillary region. Please note that all CT scans at this facility use dose modulation, iterative reconstruction, and/or weight-based dosing when appropriate to reduce radiation dose to as low as reasonably achievable. Dictated by Michael Almazan MD @ 04/10/2025 8:48:37 PM (Electronic Signature) CT cervical spine: Attestation: I have reviewed the pertinent imaging results. Radiologist's impression: Patient: MADELINE PERSAUD Facility:?[facility] Patient ID:?[id number] Site Patient ID:?[id number]. Site :?1990 Study:?CT-Spine Cervical CODE TRAUMA WITHOUT-04/10/2025 8:34:29 PM Ordering Physician:Addison Garcia Final Report: Indication: Fall. Technique: Noncontrast CT images of the cervical spine. Comparison: None. Findings: Reversal of the cervical lordosis. Mild leftward cervical curvature. Vertebral body heights are maintained. No acute fracture, spondylolisthesis, or traumatic subluxation. No spinal canal or neural foraminal stenosis. No concerning opacities in the lung apices. Impression: No acute fracture or traumatic subluxation. Please note that all CT scans at this facility use dose modulation, iterative reconstruction, and/or weight-based dosing when appropriate to reduce radiation dose to as low as reasonably achievable. Dictated by Michael Almazan MD @ 04/10/2025 8:51:19 PM (Electronic Signature) CT scan - head: Attestation: I have reviewed the pertinent imaging results. Radiologist's impression: Patient: MADELINE PERSAUD Facility:?[facility] Patient ID:?[id number] Site Patient ID:?[id number]. Site :?1990 Study:?CT-Facial CODE TRAUMA WITHOUT-04/10/2025 8:34:57 PM Ordering Physician:Addison Garcia Final Report: Indication: Fall. Technique: CT brain: Noncontrast CT images of the brain. CT facial bones: Noncontrast CT images of the facial bones. Comparison: CT brain and CT facial bones 04/08/2025. Findings: CT brain: Minimal diffuse cerebral volume loss. No mass effect or midline shift. Morton-white differentiation is maintained. No acute intracranial hemorrhage or pathologic extra-axial fluid collection. No calvarial fracture. CT facial bones: Laterally displaced, mildly comminuted fracture of the right nasal bones. Soft tissue swelling involving the nasal folds. Soft tissue stranding and swelling in the left periorbital and left premaxillary region. Globes are symmetric. No retrobulbar hematoma. Paranasal sinuses are well aerated. Mastoid air cells are clear. Impression: 1. No acute intracranial hemorrhage or mass effect. 2. Laterally displaced, mildly comminuted fracture of the right nasal bones. Soft tissue swelling involving the nasal folds. Soft tissue stranding and swelling in the left periorbital and left premaxillary region. Please note that all CT scans at this facility use dose modulation, iterative reconstruction, and/or weight-based dosing when appropriate to reduce radiation dose to as low as reasonably achievable. Dictated by Michael Almazan MD @ 04/10/2025 8:48:57 PM (Electronic Signature) Chest x-ray: Attestation: I have reviewed the pertinent imaging results. Radiologist's impression: Patient: MADELINE PERSAUD Facility:?[facility] Patient ID:?[id number] Site Patient ID:?[id number]. Site :?1990 Study:?XRay-Chest 1V CODE TRAUMA-04/10/2025 8:47:11 PM Ordering Physician:Addison Garcia Final Report: Indication: Fall, altered, fell downstairs. Technique: Single AP view of the chest. Comparison: 04/08/2025. Findings: Low lung volumes with bronchovascular crowding. No acute focal consolidation. The cardiomediastinal silhouette is unremarkable. No pleural effusion or pneumothorax. The osseous structures and soft tissues are unremarkable for age. Impression: No evidence of an acute pulmonary process Dictated by Bernabe Benedict MD @ 04/10/2025 9:13:59 PM (Electronic Signature) ECG Data Attestation: I personally reviewed and interpreted this ECG as follows: (Sinus tachycardia, 131 beats per minute. LVH.) Prior ECG tracings: available for review Discharge Plan Discharge Clinical Impression: Acute alcohol intoxication, Fracture of nasal bones Patient Disposition: Home, Self-Care Condition: Stable Instructions: Nasal Fracture (ED), Alcohol Use Disorder (ED) Additional Instructions: Ice your nose as much as you are able to the next 3-5 days to help decrease swelling. Sleeping with her head elevated can also help diminish swelling. You will need to follow up with ENT for further management of this nose fracture. Please contact your primary provider in clinic and get a referral to ENT. I also highly recommend that you seek treatment for your alcohol. You can contact the county you live in and start the process through social problems specialist looking for chemical dependency treatment. Can use Tylenol 1000 mg 3 times a day baseline for pain; can supplement with ibuprofen 600 mg up to 4 times a day with recommendations to take with food to protect her stomach. I do understand that your nose is painful, narcotics cannot safely be used due to your level of alcohol use. Activity Level: Activity as Tolerated Prescriptions: No Action gabapentin 600 mg tablet 600 mg PO QID clonidine HCl 0.2 mg tablet 0.2 mg PO QPM PRN dextroamphetamine-amphetamine 20 mg tablet 1 tab PO DAILY lorazepam 1 mg tablet 1 mg PO 3XD PRN Follow Up/Referrals: Provider,Not a Local [Primary Care Provider, Family Practice] Stand Alone Forms: [facility] Info Instructions Procedures FAST Exam FAST Exam 1: US method: abdominal Was an Echo performed?: No Fluid in Morison's pouch: No Fluid in Splenorenal Junction: No (more difficult to assess) Fluid around bladder, Transverse view: No Fluid around bladder, Sagittal view: No Fluid in Pericardial Sac: No Gross Wall Motion Abnormality: No Study normal for this patient: Yes Images saved for further review: Yes Additional Comments: Bilateral sliding lung signs seen both apical views.
[2025-04-10 20:40] LABS: Lactate* 3.1 mmol/L (0.5-1.9)
[2025-04-10 20:41] LABS: Basophils Absolute Auto 0.01 K/uL (0.00-0.30); Basophils Percent Auto 0.1 % (0.0-3.0); Eosinophils Absolute Auto 0.05 K/uL (0.00-0.50); Eosinophils Percent Auto 0.7 % (0.0-7.0); Hematocrit 43.3 % (37.0-53.0); Hemoglobin* 15.2 gm/dL (13.5-17.5); Immature Granulocytes Abs Auto 0.03 K/uL (0.00-0.30); Immature Granulocytes Pct Auto 0.4 %; Lymphocytes Absolute Auto 2.06 K/uL (0.90-2.90); Lymphocytes Percent Auto 30.3 % (20-44); Mean Corpuscular HGB Conc 35 gm/dL (32-36); Mean Corpuscular Hemoglobin 32 pg (26-34); Mean Corpuscular Volume 90 fL (80-100); Monocytes Percent Auto 6.3 % (0.0-11.0); Neutrophils Absolute Auto 4.22 K/uL (1.7-7.0); Neutrophils Percent Auto 62.2 % (42.0-72.0); Platelet Count* 191 K/uL (140-440); RDW Coefficient of Variation % 12.4 % (11.5-15.5); Red Blood Count 4.83 m/uL (4.30-5.90)
[2025-04-10 20:43] LABS: Slide Review Reflex No
[2025-04-10 20:58] LABS: Albumin* 4.7 g/dL (3.3-5.0); Chloride* 106 mmol/L (96-114); Sodium* 147 mmol/L (135-149)
[2025-04-10 20:59] LABS: Potassium* 3.5 mmol/L (3.6-5.1)
[2025-04-10 21:01] LABS: Alanine Aminotransferase* 32 U/L (4-50); Alkaline Phosphatase* 85 U/L (40-150); Aspartate Amino Transferase* 49 U/L (12-35); Bilirubin Total* 0.6 mg/dL (0.1-1.5); Blood Urea Nitrogen* 3 mg/dL (5-24); Carbon Dioxide* 25 mmol/L (20-32); Creatinine* 0.8 mg/dL (0.5-1.5); Estimated Glomerular Filt Rate 118 ml/min; Total Protein* 7.6 g/dL (6.0-8.3)
[2025-04-10 21:02] LABS: Anion Gap 16 mEq/L (7-15); Glucose* 162 mg/dL (60-115)
[2025-04-10 21:05] LABS: Appearance Urine Clear (Clear); Bilirubin Urine Negative (Negative); Blood Urine 2+ (Negative); Color Urine Yellow (Yellow); Glucose Urine Negative (Negative); Ketones Urine Negative (Negative); Leukocyte Esterase Urine Negative (Negative); Nitrite Urine Negative (Negative); Protein Urine Trace (Negative); Urobilinogen Urine 0.2 (0.2-1.0)
[2025-04-10 21:13] LABS: Amphetamine Screen Urine POSITIVE (Negative); Barbiturate Screen Urine Negative (Negative); Benzodiazepines Screen Urine POSITIVE (Negative); Cannabinoid Screen Urine Negative (Negative); Cocaine Screen Urine Negative (Negative); Methadone Screen Urine Negative (Negative); Methamphetamines Screen Urine Negative (Negative); Opiate Screen Urine Negative (Negative); Oxycodone Screen Urine Negative (Negative); Phencyclidine Screen Urine Negative (Negative); Squamous Epithelial Cell Urine Few (None-Few); Tricyclic Antidepressant Urine Negative (Negative)
[2025-04-10 21:14] LABS: Ethanol* 0.37 % (0.01-0.03)
[2025-04-10] MEDS: ACETAMINOPHEN 500 MG TABLET 1000 MG PO (21:32)
[2025-04-11] MEDS: OXYCODONE 5 MG TABLET PO (01:24)
[2025-04-11 01:27] VITALS: PULSE 123; O2SAT 95
[2025-04-11 03:00] VITALS: BP 155/74; PULSE 95; RESP 18; TEMP 36.8; O2SAT 93
[2025-04-11 05:41] VITALS: BP 129/85; PULSE 95; RESP 18; TEMP 36.8; O2SAT 93
== END 2025-04-11 07:14 | disposition home or self-care (01) ==
PROVIDERS: Family Medicine; Emergency Provider Family Medicine
DX: F10.129 Alcohol abuse with intoxication, unspecified (principal); S02.2XXA Fracture of nasal bones, initial encounter for closed fracture
CPT/HCPCS: 36415; 70450; 70486; 71045; 72125; 76604; 76705; 80053; 80306; 81001; 82077; 83605; 85025; 93005; 93308; 94761; 99285; 99291; A9270; G0390